=== PATIENT | female | born 1970 | race Caucasian/White ===

== ENCOUNTER 2019-02-26 10:00 | Outpatient (RCR) | payer OTHER, SELFPAY | END 2019-02-26 23:59 | disposition home or self-care (01) | LOC: NS 10:00 | PROVIDERS: Visit Provider Orthopaedic Surgery | DX: R73.03 Prediabetes (principal); Z71.3 Dietary counseling and surveillance | CPT/HCPCS: 97802 ==

== ENCOUNTER → 2019-07-03 15:49 | Outpatient (CLI) | payer OTHER, SELFPAY ==
[2019-07-03 15:16] VITALS: BMI 54.7
[2019-07-03 18:05] LABS: BNP,B-Type NATRIURETIC PEPTIDE 11.7 pg/mL (0-100)
[2019-07-03 18:19] LABS: Anion Gap 10 (5-15); BUN 15 mg/dL (7-18); BUN/Creat Ratio 15.6 RATIO (10-20); Calcium,Total 9.4 mg/dL (8.5-10.1); Chloride 102 mmol/L (98-107); Creatinine, Serum 0.96 mg/dL (0.55-1.02); EST Glomerular Filtration Rate 66 mL/min (>60); Est Glom Filt Rate - Afr Amer 80 mL/min (>60); Free T3 2.8 pg/mL (2.18-3.98); Glucose 82 mg/dL (74-106); Potassium 3.8 mmol/L (3.5-5.1); Sodium Level 141 mmol/L (136-145)
== END ==
LOC: LAB 15:53
PROVIDERS: Family Provider Physician Assistant; PCP Physician Assistant; Referring Provider Internal Medicine Cardiovascular Disease; Visit Provider Internal Medicine Cardiovascular Disease
DX: R06.00 Dyspnea, unspecified (principal)
CPT/HCPCS: 36415; 80048; 83880; 84481

== ENCOUNTER → 2019-08-13 10:06 | Outpatient (CLI) | payer OTHER, SELFPAY ==
[2019-07-03 15:16] VITALS: BMI 54.7
--- NOTE | 2019-08-13 10:11 | RAD_ITS ---
STUDY: X-RAY - LEFT HAND REASON FOR EXAM: Female, 49 years old. Inflammatory polyarthropathy. TECHNIQUE: 3 view(s) of the hand. COMPARISON: None. FINDINGS: Normal radiocarpal articulation. Normal distal radioulnar joint. Normal visualized carpal bones. Normal carpal articulations Normal carpometacarpal articulation of the thumb. Normal second through fifth carpometacarpal joints. Normal metacarpi. Normal metacarpophalangeal joint of the thumb. Normal interphalangeal joint of the thumb. Normal proximal and distal phalanges of the thumb. Normal metacarpophalangeal joints of the second through fifth fingers. Normal proximal and distal interphalangeal joints of the second through fifth fingers. Normal phalanges of the second through fifth fingers. Diffuse soft tissue swelling. RAD/Hand Min 3 Views IMPRESSION: Diffuse soft tissue swelling. Electronically Signed: Larry Payne, at 11:32 EST , Service support ,
--- NOTE | 2019-08-13 10:11 | RAD_ITS ---
STUDY: X-RAY - RIGHT HAND REASON FOR EXAM: Female, 49 years old. Inflammatory polyarthropathy. TECHNIQUE: 3 view(s) of the hand. COMPARISON: None. FINDINGS: Normal radiocarpal articulation. Normal distal radioulnar joint. Normal visualized carpal bones. Normal carpal articulations Normal carpometacarpal articulation of the thumb. Normal second through fifth carpometacarpal joints. Normal metacarpi. Normal metacarpophalangeal joint of the thumb. Normal interphalangeal joint of the thumb. Normal proximal and distal phalanges of the thumb. Normal metacarpophalangeal joints of the second through fifth fingers. Normal proximal and distal interphalangeal joints of the second through fifth fingers. Normal phalanges of the second through fifth fingers. Diffuse soft tissue swelling. RAD/Hand Min 3 Views IMPRESSION: Diffuse soft tissue swelling. Electronically Signed: Larry Payne, at 11:32 EST , Service support ,
[2019-08-13 12:26] LABS: Erythrocyte Sedimentation Rate 23 mm/hr (0-20)
[2019-08-13 12:27] LABS: Absolute Lymphocyte Count 1.31 X10^3/uL (0.83-4.51); Absolute Neutrophil Count 4.9 X10^3/uL (2.0-7.7); Basophil# 0.03 X10^3/uL; Basophil% 0.4 % (0-1); Eosinophil# 0.12 X10^3/uL; Eosinophils% 1.8 % (0-5); Hemoglobin 13.6 g/dL (12.0-15.0); Lymphocyte # 1.31 X10^3/ul (4.0); Lymphocyte % 19.5 % (19-41); Mean Corp Hgb Conc 31.6 g/dL (32-36); Mean Corpuscular Volume 94.9 fL (81-99); Mean Platelet Vol. 10.3 fl (6.2-12.0); Monocyte# 0.33 X10^3/uL; Monocyte% 4.9 % (0-10); NRBC Flagged by Analyzer 0 % (0-5); Neutrophil # 4.89 X10^3/uL (2.7-7.7); Platelet Count 310 K/mm3 (150-450); RBC Distribution Width CV 13.9 % (11.6-14.6); RBC Distribution Width SD 48.4 fl (35.1-43.9); Red Blood Count 4.53 M/mm3 (4.2-5.4); White Blood Count 6.7 K/mm3 (4.4-11.0)
[2019-08-13 13:07] LABS: ALB/GLOB Ratio 0.8 RATIO (0.9-2.4); AST(SGOT) 34 U/L (15-37); Alanine Aminotransfer ALT/SGPT 43 U/L (13-56); Albumin, Serum 3.6 g/dL (3.2-5.0); Alkaline Phosphatase 93 U/L (45-117); Anion Gap 8 (5-15); BUN 17 mg/dL (7-18); Calcium,Total 9.2 mg/dL (8.5-10.1); Chloride 103 mmol/L (98-107); Creatinine, Serum 0.94 mg/dL (0.55-1.02); EST Glomerular Filtration Rate 67 mL/min (>60); Est Glom Filt Rate - Afr Amer 82 mL/min (>60); Globulin 4.7 g/dL (2.2-4.2); Glucose 111 mg/dL (74-106); Potassium 3.9 mmol/L (3.5-5.1); Protein, Total 8.3 g/dL (6.4-8.2); Rheumatoid Factor < 10.0 IU/mL (<15); Sodium Level 139 mmol/L (136-145)
[2019-08-13 13:40] LABS: Hepatitis B Surface Antibody Non-Reactive; Hepatitis B Surface Antigen Non-Reactive (Nonreactive); Hepatitis C Antibody Non-Reactive (Nonreactive)
[2019-08-14 14:56] LABS: SJOGREN'S Anti-SS-A test 0.8 AI (0.0-0.9); SJOGREN'S Anti-SS-B test < 0.2 AI (0.0-0.9)
[2019-08-14 15:33] LABS: ANTINUCLEAR ANTIBODIES DIRECT Negative (Negative)
[2019-08-19 16:31] LABS: CCP IgG Antibodies 10 units (0-19); HLA B27 Negative (.); Hepatitis B Core AB IgM Negative (Negative)
== END ==
LOC: MTLAB 10:09
PROVIDERS: Family Provider Physician Assistant; PCP Physician Assistant; Referring Provider Internal Medicine Rheumatology; Visit Provider Internal Medicine Rheumatology
DX: M06.4 Inflammatory polyarthropathy (principal); M79.7 Fibromyalgia; M17.0 Bilateral primary osteoarthritis of knee; M21.40 Flat foot [pes planus] (acquired), unspecified foot; E03.9 Hypothyroidism, unspecified; E28.2 Polycystic ovarian syndrome; G47.33 Obstructive sleep apnea (adult) (pediatric); E66.9 Obesity, unspecified
CPT/HCPCS: 36415; 73130; 80053; 81374; 85025; 85652; 86038; 86140; 86200; 86235; 86431; 86705; 86706; 86803; 87340

== ENCOUNTER → 2019-11-15 | Outpatient (CLI) | payer OTHER, SELFPAY ==
[2019-07-03 15:16] VITALS: BMI 54.7
[2019-11-15 15:36] LABS: Absolute Neutrophil Count 4.1 X10^3/uL (2.0-7.7); Basophil# 0.02 X10^3/uL; Basophil% 0.3 % (0-1); Eosinophils% 1.7 % (0-5); Hematocrit 38.8 % (37-47); Hemoglobin 12.6 g/dL (12.0-15.0); Lymphocyte % 21.8 % (19-41); Mean Corp Hgb Conc 32.5 g/dL (32-36); Mean Corpuscular Hgb 30.9 pg (27.0-32.0); Mean Corpuscular Volume 95.1 fL (81-99); Mean Platelet Vol. 9.9 fl (6.2-12.0); Monocyte# 0.39 X10^3/uL; Monocyte% 6.5 % (0-10); NRBC Flagged by Analyzer 0 % (0-5); Neutrophil # 4.13 X10^3/uL (2.7-7.7); Neutrophil % 69.4 % (47-70); Platelet Count 268 K/mm3 (150-450); RBC Distribution Width CV 15.2 % (11.6-14.6); RBC Distribution Width SD 52.6 fl (35.1-43.9); Red Blood Count 4.08 M/mm3 (4.2-5.4)
[2019-11-15 15:47] LABS: ALB/GLOB Ratio 0.8 RATIO (0.9-2.4); AST(SGOT) 37 U/L (15-37); Alanine Aminotransfer ALT/SGPT 47 U/L (13-56); Albumin, Serum 3.5 g/dL (3.2-5.0); Alkaline Phosphatase 81 U/L (45-117); Anion Gap 4 (5-15); BUN 16 mg/dL (7-18); BUN/Creat Ratio 17.2 RATIO (10-20); Calcium,Total 9.2 mg/dL (8.5-10.1); Chloride 102 mmol/L (98-107); Creatinine, Serum 0.93 mg/dL (0.55-1.02); EST Glomerular Filtration Rate 69 mL/min (>60); Est Glom Filt Rate - Afr Amer 83 mL/min (>60); Globulin 4.4 g/dL (2.2-4.2); Glucose 103 mg/dL (74-106); Potassium 3.9 mmol/L (3.5-5.1); Protein, Total 7.9 g/dL (6.4-8.2); Sodium Level 138 mmol/L (136-145)
== END | disposition home or self-care (01) ==
LOC: MTLAB 13:31
PROVIDERS: PCP Physician Assistant; Referring Provider Internal Medicine Rheumatology; Visit Provider Internal Medicine Rheumatology
DX: M06.4 Inflammatory polyarthropathy (principal); M79.7 Fibromyalgia; M17.0 Bilateral primary osteoarthritis of knee; M21.40 Flat foot [pes planus] (acquired), unspecified foot; E03.9 Hypothyroidism, unspecified; E28.2 Polycystic ovarian syndrome; G47.33 Obstructive sleep apnea (adult) (pediatric); E66.9 Obesity, unspecified; Z79.899 Other long term (current) drug therapy
CPT/HCPCS: 36415; 80053; 85025

== ENCOUNTER → 2020-02-03 | Outpatient (CLI) | payer OTHER, SELFPAY ==
[2020-01-20 15:53] VITALS: BMI 54.7
[2020-02-03 15:19] LABS: Absolute Lymphocyte Count 0.76 X10^3/uL (0.83-4.51); Absolute Neutrophil Count 5.9 X10^3/uL (2.0-7.7); Basophil# 0.03 X10^3/uL; Basophil% 0.4 % (0-1); Eosinophil# 0.07 X10^3/uL; Hematocrit 40.5 % (37-47); Hemoglobin 13.3 g/dL (12.0-15.0); Lymphocyte # 0.76 X10^3/ul (4.0); Lymphocyte % 10.7 % (19-41); Mean Corp Hgb Conc 32.8 g/dL (32-36); Mean Corpuscular Hgb 33.4 pg (27.0-32.0); Mean Corpuscular Volume 101.8 fL (81-99); Monocyte% 4.2 % (0-10); NRBC Flagged by Analyzer 0 % (0-5); Neutrophil # 5.94 X10^3/uL (2.7-7.7); Neutrophil % 83.3 % (47-70); Platelet Count 271 K/mm3 (150-450); RBC Distribution Width CV 15.2 % (11.6-14.6); Red Blood Count 3.98 M/mm3 (4.2-5.4); White Blood Count 7.1 K/mm3 (4.4-11.0)
[2020-02-03 15:36] LABS: ALB/GLOB Ratio 0.8 RATIO (0.9-2.4); AST(SGOT) 36 U/L (15-37); Alanine Aminotransfer ALT/SGPT 60 U/L (13-56); Albumin, Serum 3.6 g/dL (3.2-5.0); Alkaline Phosphatase 78 U/L (45-117); Anion Gap 7 (5-15); BUN 18 mg/dL (7-18); BUN/Creat Ratio 17.5 RATIO (10-20); Calcium,Total 9.3 mg/dL (8.5-10.1); Chloride 98 mmol/L (98-107); Creatinine, Serum 1.03 mg/dL (0.55-1.02); EST Glomerular Filtration Rate 61 mL/min (>60); Est Glom Filt Rate - Afr Amer 74 mL/min (>60); Globulin 4.3 g/dL (2.2-4.2); Glucose 196 mg/dL (74-106); Potassium 3.9 mmol/L (3.5-5.1); Protein, Total 7.9 g/dL (6.4-8.2); Sodium Level 133 mmol/L (136-145)
== END | disposition home or self-care (01) ==
LOC: MTLAB 13:54
PROVIDERS: PCP Physician Assistant; Referring Provider Internal Medicine Rheumatology; Visit Provider Internal Medicine Rheumatology
DX: M06.4 Inflammatory polyarthropathy (principal); M79.7 Fibromyalgia; M17.0 Bilateral primary osteoarthritis of knee; M21.40 Flat foot [pes planus] (acquired), unspecified foot; E03.9 Hypothyroidism, unspecified; E28.2 Polycystic ovarian syndrome; G47.33 Obstructive sleep apnea (adult) (pediatric); E66.9 Obesity, unspecified; Z79.899 Other long term (current) drug therapy
CPT/HCPCS: 36415; 80053; 85025

== ENCOUNTER → 2020-07-07 | Outpatient (CLI) | payer OTHER, SELFPAY ==
[2020-01-20 15:53] VITALS: BMI 54.7
[2020-07-07 15:33] LABS: Absolute Lymphocyte Count 1.61 X10^3/uL (0.83-4.51); Basophil# 0.02 X10^3/uL; Basophil% 0.3 % (0-1); Eosinophils% 1.6 % (0-5); Hematocrit 41.6 % (37-47); Lymphocyte # 1.61 X10^3/ul (4.0); Lymphocyte % 26.2 % (19-41); Mean Corp Hgb Conc 31.3 g/dL (32-36); Mean Corpuscular Hgb 30.1 pg (27.0-32.0); Mean Corpuscular Volume 96.3 fL (81-99); Monocyte% 6.5 % (0-10); NRBC Flagged by Analyzer 0 % (0-5); Neutrophil # 3.99 X10^3/uL (2.7-7.7); Neutrophil % 64.9 % (47-70); Platelet Count 303 K/mm3 (150-450); RBC Distribution Width CV 13.8 % (11.6-14.6); RBC Distribution Width SD 49.1 fl (35.1-43.9); Red Blood Count 4.32 M/mm3 (4.2-5.4); White Blood Count 6.2 K/mm3 (4.4-11.0)
[2020-07-07 15:58] LABS: ALB/GLOB Ratio 0.8 RATIO (0.9-2.4); AST(SGOT) 35 U/L (15-37); Alanine Aminotransfer ALT/SGPT 46 U/L (13-56); Albumin, Serum 3.5 g/dL (3.2-5.0); Alkaline Phosphatase 82 U/L (45-117); Anion Gap 6 (5-15); BUN 14 mg/dL (7-18); BUN/Creat Ratio 17.6 RATIO (10-20); Chloride 104 mmol/L (98-107); Creatinine, Serum 0.79 mg/dL (0.55-1.02); EST Glomerular Filtration Rate 82 mL/min (>60); Est Glom Filt Rate - Afr Amer 99 mL/min (>60); Globulin 4.3 g/dL (2.2-4.2); Glucose 86 mg/dL (74-106); Potassium 3.5 mmol/L (3.5-5.1); Protein, Total 7.8 g/dL (6.4-8.2); Sodium Level 140 mmol/L (136-145)
== END | disposition home or self-care (01) ==
LOC: MTLAB 14:06
PROVIDERS: PCP Physician Assistant; Referring Provider Internal Medicine Rheumatology; Visit Provider Internal Medicine Rheumatology
DX: M06.09 Rheumatoid arthritis without rheumatoid factor, multiple sites (principal); M79.7 Fibromyalgia; M17.0 Bilateral primary osteoarthritis of knee; K76.0 Fatty (change of) liver, not elsewhere classified; M21.40 Flat foot [pes planus] (acquired), unspecified foot; E03.9 Hypothyroidism, unspecified; E28.2 Polycystic ovarian syndrome; G47.33 Obstructive sleep apnea (adult) (pediatric); E66.9 Obesity, unspecified; Z79.899 Other long term (current) drug therapy
CPT/HCPCS: 36415; 80053; 85025

== ENCOUNTER → 2020-07-14 | Outpatient (CLI) | payer OTHER, SELFPAY ==
[2020-01-20 15:53] VITALS: BMI 54.7
[2020-07-17 16:08] LABS: Red Blood Cell Count Test/G6PD 4.11 x10E6/uL (3.77-5.28)
[2020-07-17 17:50] LABS: G6PD Quant Test 316 (127-427)
== END | disposition home or self-care (01) ==
LOC: MTLAB 16:29
PROVIDERS: PCP Physician Assistant; Referring Provider Internal Medicine Rheumatology; Visit Provider Internal Medicine Rheumatology
DX: M06.09 Rheumatoid arthritis without rheumatoid factor, multiple sites (principal); M79.7 Fibromyalgia; M17.0 Bilateral primary osteoarthritis of knee; K76.0 Fatty (change of) liver, not elsewhere classified; M21.40 Flat foot [pes planus] (acquired), unspecified foot; E03.9 Hypothyroidism, unspecified; E28.2 Polycystic ovarian syndrome; G47.33 Obstructive sleep apnea (adult) (pediatric); E66.9 Obesity, unspecified; Z79.899 Other long term (current) drug therapy
CPT/HCPCS: 36415; 82955

== ENCOUNTER → 2020-09-28 15:49 | Outpatient (CLI) | payer OTHER, SELFPAY ==
[2020-01-20 15:53] VITALS: BMI 54.7
[2020-09-28 17:48] LABS: Absolute Lymphocyte Count 1.14 X10^3/uL (0.83-4.51); Absolute Neutrophil Count 4.2 X10^3/uL (2.0-7.7); Basophil# 0.03 X10^3/uL; Basophil% 0.5 % (0-1); Eosinophil# 0.07 X10^3/uL; Eosinophils% 1.2 % (0-5); Hematocrit 44.5 % (37-47); Lymphocyte # 1.14 X10^3/ul (4.0); Lymphocyte % 19.3 % (19-41); Mean Corp Hgb Conc 31.5 g/dL (32-36); Mean Corpuscular Volume 95.5 fL (81-99); Mean Platelet Vol. 10.4 fl (6.2-12.0); Monocyte# 0.48 X10^3/uL; Monocyte% 8.1 % (0-10); NRBC Flagged by Analyzer 0 % (0-5); Neutrophil # 4.16 X10^3/uL (2.7-7.7); Neutrophil % 70.2 % (47-70); Platelet Count 303 K/mm3 (150-450); RBC Distribution Width CV 13.5 % (11.6-14.6); RBC Distribution Width SD 47.6 fl (35.1-43.9); Red Blood Count 4.66 M/mm3 (4.2-5.4); White Blood Count 5.9 K/mm3 (4.4-11.0)
[2020-09-28 18:12] LABS: ALB/GLOB Ratio 0.8 RATIO (0.9-2.4); AST(SGOT) 32 U/L (15-37); Alanine Aminotransfer ALT/SGPT 55 U/L (13-56); Albumin, Serum 3.5 g/dL (3.2-5.0); Alkaline Phosphatase 93 U/L (45-117); Anion Gap 6 (5-15); BUN 14 mg/dL (7-18); BUN/Creat Ratio 13.7 RATIO (10-20); Calcium,Total 8.8 mg/dL (8.5-10.1); Chloride 104 mmol/L (98-107); Creatinine, Serum 1.02 mg/dL (0.55-1.02); EST Glomerular Filtration Rate 61 mL/min (>60); Est Glom Filt Rate - Afr Amer 74 mL/min (>60); Globulin 4.2 g/dL (2.2-4.2); Glucose 154 mg/dL (74-106); Potassium 4.2 mmol/L (3.5-5.1); Protein, Total 7.7 g/dL (6.4-8.2); Sodium Level 138 mmol/L (136-145)
== END ==
LOC: MTLAB 15:51
PROVIDERS: PCP Physician Assistant; Referring Provider Internal Medicine Rheumatology; Visit Provider Internal Medicine Rheumatology
DX: M06.09 Rheumatoid arthritis without rheumatoid factor, multiple sites (principal); M79.7 Fibromyalgia; M17.0 Bilateral primary osteoarthritis of knee; K76.0 Fatty (change of) liver, not elsewhere classified; M21.40 Flat foot [pes planus] (acquired), unspecified foot; E03.9 Hypothyroidism, unspecified; E28.2 Polycystic ovarian syndrome; G47.33 Obstructive sleep apnea (adult) (pediatric); E66.9 Obesity, unspecified; Z79.899 Other long term (current) drug therapy
CPT/HCPCS: 36415; 80053; 85025

== ENCOUNTER → 2020-12-21 16:23 | Outpatient (CLI) | payer OTHER, SELFPAY ==
[2020-01-20 15:53] VITALS: BMI 54.7
[2020-12-21 17:34] LABS: Absolute Lymphocyte Count 1.15 X10^3/uL (0.83-4.51); Absolute Neutrophil Count 4.2 X10^3/uL (2.0-7.7); Basophil# 0.02 X10^3/uL; Basophil% 0.3 % (0-1); Eosinophil# 0.09 X10^3/uL; Eosinophils% 1.5 % (0-5); Hematocrit 40.4 % (37-47); Lymphocyte # 1.15 X10^3/ul (4.0); Lymphocyte % 19.2 % (19-41); Mean Corp Hgb Conc 32.2 g/dL (32-36); Mean Corpuscular Hgb 31.4 pg (27.0-32.0); Mean Corpuscular Volume 97.6 fL (81-99); Monocyte# 0.49 X10^3/uL; Monocyte% 8.2 % (0-10); NRBC Flagged by Analyzer 0 % (0-5); Neutrophil # 4.19 X10^3/uL (2.7-7.7); Neutrophil % 70.1 % (47-70); Platelet Count 248 K/mm3 (150-450); RBC Distribution Width CV 13.7 % (11.6-14.6); Red Blood Count 4.14 M/mm3 (4.2-5.4)
[2020-12-21 18:00] LABS: ALB/GLOB Ratio 0.8 RATIO (0.9-2.4); AST(SGOT) 52 U/L (15-37); Alanine Aminotransfer ALT/SGPT 57 U/L (13-56); Albumin, Serum 3.3 g/dL (3.2-5.0); Alkaline Phosphatase 80 U/L (45-117); Anion Gap 6 (5-15); BUN 16 mg/dL (7-18); BUN/Creat Ratio 15.7 RATIO (10-20); Calcium,Total 8.8 mg/dL (8.5-10.1); Chloride 105 mmol/L (98-107); Creatinine, Serum 1.02 mg/dL (0.55-1.02); EST Glomerular Filtration Rate 61 mL/min (>60); Est Glom Filt Rate - Afr Amer 74 mL/min (>60); Globulin 3.9 g/dL (2.2-4.2); Glucose 138 mg/dL (74-106); Potassium 4.1 mmol/L (3.5-5.1); Protein, Total 7.2 g/dL (6.4-8.2); Sodium Level 141 mmol/L (136-145)
== END ==
LOC: MTLAB 16:25
PROVIDERS: PCP Physician Assistant; Referring Provider Internal Medicine Rheumatology; Visit Provider Internal Medicine Rheumatology
DX: M06.09 Rheumatoid arthritis without rheumatoid factor, multiple sites (principal); M79.7 Fibromyalgia; M17.0 Bilateral primary osteoarthritis of knee; K76.0 Fatty (change of) liver, not elsewhere classified; M21.40 Flat foot [pes planus] (acquired), unspecified foot; E03.9 Hypothyroidism, unspecified; E28.2 Polycystic ovarian syndrome; G47.33 Obstructive sleep apnea (adult) (pediatric); E66.9 Obesity, unspecified; Z79.899 Other long term (current) drug therapy
CPT/HCPCS: 36415; 80053; 85025

== ENCOUNTER → 2021-01-18 15:59 | Outpatient (CLI) | payer OTHER, SELFPAY ==
[2020-01-20 15:53] VITALS: BMI 54.7
[2021-01-18 17:58] LABS: ALB/GLOB Ratio 0.9 RATIO (0.9-2.4); AST(SGOT) 34 U/L (15-37); Alanine Aminotransfer ALT/SGPT 53 U/L (13-56); Albumin, Serum 3.4 g/dL (3.2-5.0); Alkaline Phosphatase 88 U/L (45-117); Anion Gap 3 (5-15); BUN 12 mg/dL (7-18); BUN/Creat Ratio 15.1 RATIO (10-20); Chloride 103 mmol/L (98-107); EST Glomerular Filtration Rate 81 mL/min (>60); Est Glom Filt Rate - Afr Amer 99 mL/min (>60); Globulin 3.8 g/dL (2.2-4.2); Glucose 165 mg/dL (74-106); Potassium 3.6 mmol/L (3.5-5.1); Protein, Total 7.2 g/dL (6.4-8.2); Sodium Level 139 mmol/L (136-145)
== END ==
PROVIDERS: PCP Physician Assistant; Referring Provider Internal Medicine Rheumatology; Visit Provider Internal Medicine Rheumatology
DX: M06.09 Rheumatoid arthritis without rheumatoid factor, multiple sites (principal); M79.7 Fibromyalgia; M17.0 Bilateral primary osteoarthritis of knee; K76.0 Fatty (change of) liver, not elsewhere classified; M21.40 Flat foot [pes planus] (acquired), unspecified foot; E03.9 Hypothyroidism, unspecified; E28.2 Polycystic ovarian syndrome; G47.33 Obstructive sleep apnea (adult) (pediatric); E66.9 Obesity, unspecified; Z79.899 Other long term (current) drug therapy
CPT/HCPCS: 36415; 80053

== ENCOUNTER → 2021-02-22 16:15 | Outpatient (CLI) | payer OTHER, SELFPAY ==
[2020-01-20 15:53] VITALS: BMI 54.7
--- NOTE | 2021-02-22 16:23 | RAD_ITS ---
STUDY: X-RAY - CERVICAL SPINE REASON FOR EXAM: Female, 51 years old. chronic neck pain, pt states she has fibromyalgia and arthritis. TECHNIQUE: 3 view(s) of the cervical spine were obtained. COMPARISON: None FINDINGS: Normal anterior atlantoaxial articulation. Normal odontoid process. There is straightening of the normal cervical lordosis. There is multi-level endplate spondylosis. There is multi-level degenerative disc disease with multilevel disc space narrowing. Normal visualized intervertebral neuroforamina. The soft tissue structures are unremarkable. RAD/Cerv Spine 2 or 3 Views IMPRESSION: Degenerative disc disease lower cervical spine with straightening of the normal lordotic curvature. Electronically Signed: Benjie Yadav MD at 9:15 EDT Tel , Service support ,
--- NOTE | 2021-02-22 16:31 | RAD_ITS ---
STUDY: X-RAY - LUMBAR SPINE REASON FOR EXAM: Female, 51 years old. chronic back pain, pt states she has fibromyalgia and arthritis. TECHNIQUE: 3 view(s) of the lumbar spine were obtained. COMPARISON: None FINDINGS: Normal lumbar lordosis. Mild levoscoliosis centered at L4. There is a normal alignment of the vertebrae. There is multilevel endplate spondylosis of the lumbar vertebrae. Normal disc space heights. The soft tissue structures are unremarkable. RAD/Lumbar Spine 2 or 3 Views IMPRESSION: Mild levoscoliosis of the lower lumbar spine with degenerative disc disease. Electronically Signed: Benjie Yadav MD at 9:14 EDT Tel , Service support ,
== END ==
LOC: RAD 16:18
PROVIDERS: PCP Physician Assistant; Referring Provider Anesthesiology Pain Medicine; Visit Provider Anesthesiology Pain Medicine
DX: M54.2 Cervicalgia (principal); M54.5 Low back pain
CPT/HCPCS: 72040; 72100

== ENCOUNTER → 2021-03-02 15:01 | Outpatient (CLI) | payer OTHER, SELFPAY ==
[2020-01-20 15:53] VITALS: BMI 54.7
[2021-03-02 18:03] LABS: Absolute Lymphocyte Count 0.99 X10^3/uL (0.83-4.51); Absolute Neutrophil Count 2.7 X10^3/uL (2.0-7.7); Basophil# 0.03 X10^3/uL; Basophil% 0.7 % (0-1); Eosinophil# 0.07 X10^3/uL; Eosinophils% 1.7 % (0-5); Hematocrit 40.9 % (37-47); Lymphocyte # 0.99 X10^3/ul (0.83-4.51); Lymphocyte % 23.6 % (19-41); Mean Corp Hgb Conc 31.8 g/dL (32-36); Mean Corpuscular Volume 97.6 fL (81-99); Mean Platelet Vol. 10.4 fl (6.2-12.0); Monocyte# 0.37 X10^3/uL; Monocyte% 8.8 % (0-10); NRBC Flagged by Analyzer 0 % (0-5); Neutrophil # 2.72 X10^3/uL (2.7-7.7); Neutrophil % 64.7 % (47-70); Platelet Count 257 K/mm3 (150-450); RBC Distribution Width CV 13.8 % (11.6-14.6); RBC Distribution Width SD 49.3 fl (35.1-43.9); Red Blood Count 4.19 M/mm3 (4.2-5.4); White Blood Count 4.2 K/mm3 (4.4-11.0)
[2021-03-02 18:24] LABS: ALB/GLOB Ratio 0.8 RATIO (0.9-2.4); AST(SGOT) 37 U/L (15-37); Alanine Aminotransfer ALT/SGPT 55 U/L (13-56); Albumin, Serum 3.4 g/dL (3.2-5.0); Alkaline Phosphatase 102 U/L (45-117); Anion Gap 6 (5-15); BUN 14 mg/dL (7-18); Calcium,Total 9.1 mg/dL (8.5-10.1); Chloride 104 mmol/L (98-107); Creatinine, Serum 0.87 mg/dL (0.55-1.02); EST Glomerular Filtration Rate 73 mL/min (>60); Est Glom Filt Rate - Afr Amer 89 mL/min (>60); Glucose 147 mg/dL (74-106); Potassium 3.7 mmol/L (3.5-5.1); Protein, Total 7.4 g/dL (6.4-8.2); Sodium Level 140 mmol/L (136-145)
== END ==
LOC: MTLAB 15:02
PROVIDERS: PCP Physician Assistant; Referring Provider Internal Medicine Rheumatology; Visit Provider Internal Medicine Rheumatology
DX: M06.09 Rheumatoid arthritis without rheumatoid factor, multiple sites (principal); M79.7 Fibromyalgia; M17.0 Bilateral primary osteoarthritis of knee; K76.0 Fatty (change of) liver, not elsewhere classified; M21.40 Flat foot [pes planus] (acquired), unspecified foot; E03.9 Hypothyroidism, unspecified; E28.2 Polycystic ovarian syndrome; G47.33 Obstructive sleep apnea (adult) (pediatric); E66.9 Obesity, unspecified; Z79.899 Other long term (current) drug therapy
CPT/HCPCS: 36415; 80053; 85025

== ENCOUNTER → 2021-06-02 16:41 | Outpatient (CLI) | payer OTHER, SELFPAY ==
[2021-06-02 18:02] LABS: Absolute Lymphocyte Count 1.32 X10^3/uL (0.83-4.51); Absolute Neutrophil Count 3.1 X10^3/uL (2.0-7.7); Basophil# 0.02 X10^3/uL; Basophil% 0.4 % (0-1); Eosinophil# 0.08 X10^3/uL; Eosinophils% 1.6 % (0-5); Hematocrit 39.6 % (37-47); Hemoglobin 12.9 g/dL (12.0-15.0); Lymphocyte # 1.32 X10^3/ul (0.83-4.51); Lymphocyte % 26.6 % (19-41); Mean Corp Hgb Conc 32.6 g/dL (32-36); Mean Corpuscular Hgb 31.3 pg (27.0-32.0); Mean Corpuscular Volume 96.1 fL (81-99); Monocyte# 0.43 X10^3/uL; Monocyte% 8.7 % (0-10); NRBC Flagged by Analyzer 0 % (0-5); Neutrophil # 3.11 X10^3/uL (2.7-7.7); Neutrophil % 62.5 % (47-70); Platelet Count 280 K/mm3 (150-450); RBC Distribution Width CV 13.4 % (11.6-14.6); RBC Distribution Width SD 47.9 fl (35.1-43.9); Red Blood Count 4.12 M/mm3 (4.2-5.4)
[2021-06-02 18:33] LABS: ALB/GLOB Ratio 0.9 RATIO (0.9-2.4); AST(SGOT) 37 U/L (15-37); Alanine Aminotransfer ALT/SGPT 54 U/L (13-56); Albumin, Serum 3.5 g/dL (3.2-5.0); Alkaline Phosphatase 105 U/L (45-117); Anion Gap 5 (5-15); BUN 12 mg/dL (7-18); BUN/Creat Ratio 13.6 RATIO (10-20); Calcium,Total 8.7 mg/dL (8.5-10.1); Chloride 106 mmol/L (98-107); Creatinine, Serum 0.88 mg/dL (0.55-1.02); EST Glomerular Filtration Rate 73 mL/min (>60); Est Glom Filt Rate - Afr Amer 88 mL/min (>60); Globulin 3.8 g/dL (2.2-4.2); Glucose 149 mg/dL (74-106); Potassium 3.7 mmol/L (3.5-5.1); Protein, Total 7.3 g/dL (6.4-8.2); Sodium Level 141 mmol/L (136-145)
== END ==
LOC: MTLAB 16:42
PROVIDERS: PCP Physician Assistant; Referring Provider Internal Medicine Rheumatology; Visit Provider Internal Medicine Rheumatology
DX: M06.09 Rheumatoid arthritis without rheumatoid factor, multiple sites (principal); M79.7 Fibromyalgia; M17.0 Bilateral primary osteoarthritis of knee; K76.0 Fatty (change of) liver, not elsewhere classified; M21.40 Flat foot [pes planus] (acquired), unspecified foot; E03.9 Hypothyroidism, unspecified; E28.2 Polycystic ovarian syndrome; G47.33 Obstructive sleep apnea (adult) (pediatric); E66.9 Obesity, unspecified; Z79.899 Other long term (current) drug therapy
CPT/HCPCS: 36415; 80053; 85025

== ENCOUNTER → 2021-08-03 10:36 | Outpatient (CLI) | payer OTHER, MEDICAID, SELFPAY ==
[2020-01-20 15:53] VITALS: BMI 54.7
[2021-08-03 12:36] LABS: Absolute Lymphocyte Count 1.11 X10^3/uL (0.83-4.51); Absolute Neutrophil Count 3.9 X10^3/uL (2.0-7.7); Basophil# 0.02 X10^3/uL; Basophil% 0.4 % (0-1); Eosinophil# 0.14 X10^3/uL; Eosinophils% 2.5 % (0-5); Hematocrit 41.1 % (37-47); Hemoglobin 13.4 g/dL (12.0-15.0); Lymphocyte # 1.11 X10^3/ul (0.83-4.51); Lymphocyte % 20.1 % (19-41); Mean Corp Hgb Conc 32.6 g/dL (32-36); Mean Corpuscular Hgb 30.9 pg (27.0-32.0); Mean Corpuscular Volume 94.9 fL (81-99); Monocyte# 0.36 X10^3/uL; Monocyte% 6.5 % (0-10); NRBC Flagged by Analyzer 0 % (0-5); Neutrophil # 3.86 X10^3/uL (2.7-7.7); Platelet Count 240 K/mm3 (150-450); RBC Distribution Width CV 13.5 % (11.6-14.6); RBC Distribution Width SD 47.1 fl (35.1-43.9); Red Blood Count 4.33 M/mm3 (4.2-5.4); White Blood Count 5.5 K/mm3 (4.4-11.0)
[2021-08-03 12:48] LABS: ALB/GLOB Ratio 0.8 RATIO (0.9-2.4); AST(SGOT) 38 U/L (15-37); Alanine Aminotransfer ALT/SGPT 54 U/L (13-56); Albumin, Serum 3.3 g/dL (3.2-5.0); Alkaline Phosphatase 89 U/L (45-117); Anion Gap 3 (5-15); BUN 17 mg/dL (7-18); BUN/Creat Ratio 18.3 RATIO (10-20); Calcium,Total 9.1 mg/dL (8.5-10.1); Chloride 103 mmol/L (98-107); Creatinine, Serum 0.93 mg/dL (0.55-1.02); EST Glomerular Filtration Rate 68 mL/min (>60); Est Glom Filt Rate - Afr Amer 82 mL/min (>60); Globulin 4.4 g/dL (2.2-4.2); Glucose 131 mg/dL (74-106); Potassium 3.7 mmol/L (3.5-5.1); Protein, Total 7.7 g/dL (6.4-8.2); Sodium Level 136 mmol/L (136-145)
== END ==
PROVIDERS: PCP Physician Assistant; Referring Provider Internal Medicine Rheumatology; Visit Provider Internal Medicine Rheumatology
DX: M06.09 Rheumatoid arthritis without rheumatoid factor, multiple sites (principal); M79.7 Fibromyalgia; M17.0 Bilateral primary osteoarthritis of knee; K76.0 Fatty (change of) liver, not elsewhere classified; M21.40 Flat foot [pes planus] (acquired), unspecified foot; E03.9 Hypothyroidism, unspecified; E28.2 Polycystic ovarian syndrome; G47.33 Obstructive sleep apnea (adult) (pediatric); E66.9 Obesity, unspecified; Z79.899 Other long term (current) drug therapy
CPT/HCPCS: 36415; 80053; 85025

== ENCOUNTER 2022-01-19 15:00 | Outpatient (CLI) | payer MEDICAID, SELFPAY ==
[2022-01-19 17:17] LABS: Cholesterol 224 mg/dL (200); Follicle Stimulating Hormone 6.4 mIU/mL; High Density Lipoprotein 67 mg/dL; Luteinizing Hormone 5.7 mIU/mL; Triglycerides 226 mg/dL; Very Low Density Lipoprotein 45 mg/dL (5-40)
[2022-01-24 13:08] LABS: DHEA Sulfate 72.9 ug/dL (41.2-243.7); Testosterone, % Free 1.68 % (0.50-2.80); Testosterone, Free 0.39 ng/dL (0.10-0.85); Testosterone, Total 23 ng/dL (4-50)
[2022-01-24 14:18] LABS: Estrogen, Total, Serum 166 pg/mL (.)
== END 2022-01-19 23:59 | disposition home or self-care (01) ==
LOC: BIMLAB 15:01
PROVIDERS: PCP Physician Assistant; Visit Provider Nurse Practitioner Family
DX: L68.0 Hirsutism (principal); E66.9 Obesity, unspecified; E78.5 Hyperlipidemia, unspecified; E28.2 Polycystic ovarian syndrome
CPT/HCPCS: 36415; 80061; 82533; 82627; 82672; 83001; 83002; 84402; 84403; 82626

== ENCOUNTER → 2022-04-25 | Outpatient (CLI) | payer MEDICAID, SELFPAY ==
--- NOTE | 2022-04-25 10:07 | STRESSREP ---
Stress Test Report Pharmacologic myocardial perfusion stress test. 52-year-old lady with a history of dyspnea on exertion. Stress protocol: Resting EKG demonstrates normal sinus rhythm with a rate of 86 bpm normal intervals are noted resting blood pressure is 124/74 mmHg. 0.4 mg of regadenoson was infused per usual protocol followed by Intravenous saline flush injection continuous EKG monitoring was performed. The maximum heart rate attained was 110 bpm which was 64% of max impacted heart rate the maximum workload was 1 metabolic equivalent. At rest there were no ST or T wave changes noted suggest abnormal flow reserve and at peak infusion nonspecific ST changes were noted to suggest abnormal flow reserve. The peak blood pressure is 124/74 mmHg. Myocardial perfusion protocol. 14.6 mCi of technetium 99m sestamibi was injected at rest. 0.4 mg of regadenoson was infused per usual protocol. At peak infusion 44.7 mCi of technetium 99m sestamibi was injected. Stress and rest images were reconstructed in comparing the short axis vertical long and horizontal long axis. Gated images were also obtained to Perfusion SPECT analysis: Review of the stress images demonstrate reduction of perfusion noted in the anterior wall on the stress images. The septum and inferior wall and lateral wall appear to be well perfused. The resting images demonstrate mild improvement in the anterior wall suggesting a mild amount of anterior wall ischemia. Gated SPECT analysis: The gated ejection fraction is 51%. Conclusion: Abnormal pharmacologic myocardial perfusion stress test with evidence of anterior ischemia. Preserved ejection fraction.
== END | disposition home or self-care (01) ==
LOC: CVS 07:18
PROVIDERS: PCP Physician Assistant; Referring Provider Physician Assistant Medical; Visit Provider Physician Assistant Medical
DX: R06.00 Dyspnea, unspecified (principal); R53.83 Other fatigue; R00.0 Tachycardia, unspecified
CPT/HCPCS: 78452; 93017; A9500; A4216; J2785

== ENCOUNTER 2022-05-02 08:54 | Day surgery (SDC) | payer MEDICAID, SELFPAY ==
--- NOTE | 2022-04-28 13:10 | RAD_ITS ---
STUDY: X-RAY CHEST REASON FOR EXAM: Female, 52 years old. PRE CLSP TECHNIQUE: PA and lateral views of the chest. COMPARISON: None. FINDINGS: The lungs are clear and expanded. There is no demonstrated pleural abnormality. Normal size heart. Normal mediastinum and elliott. Normal visualized pulmonary arteries. Normal visualized aortic arch and descending thoracic aorta. There are diffuse degenerative changes of the visualized thoracic spine. Normal visualized ribs, clavicles, and shoulders. There is no demonstrated abnormality of the visualized soft tissue structures of the upper abdomen. RAD/Chest PA and Lateral IMPRESSION: Normal x-ray examination of the chest. Electronically Signed: Cyn Richards MD at 6:21 EDT Reading Location ID and State: [facility] / [place] Tel , Service support ,
[2022-04-28 13:34] LABS: Absolute Lymphocyte Count 1.29 X10^3/uL (0.83-4.51); Absolute Neutrophil Count 5.2 X10^3/uL (2.0-7.7); Basophil# 0.03 X10^3/uL; Basophil% 0.4 % (0-1); Eosinophil# 0.14 X10^3/uL; Hematocrit 41.2 % (37-47); Hemoglobin 13.5 g/dL (12.0-15.0); Lymphocyte # 1.29 X10^3/ul (0.83-4.51); Lymphocyte % 18.1 % (19-41); Mean Corp Hgb Conc 32.8 g/dL (32-36); Mean Corpuscular Hgb 31.3 pg (27.0-32.0); Mean Corpuscular Volume 95.4 fL (81-99); Mean Platelet Vol. 10.1 fl (6.2-12.0); Monocyte# 0.49 X10^3/uL; Monocyte% 6.9 % (0-10); NRBC Flagged by Analyzer 0 % (0-5); Neutrophil # 5.17 X10^3/uL (2.7-7.7); Neutrophil % 72.3 % (47-70); Platelet Count 236 K/mm3 (150-450); RBC Distribution Width CV 13.6 % (11.6-14.6); RBC Distribution Width SD 48.5 fl (35.1-43.9); Red Blood Count 4.32 M/mm3 (4.2-5.4); White Blood Count 7.1 K/mm3 (4.4-11.0)
[2022-04-28 13:49] LABS: International Normalized Ratio 1.1; Prothrombin Time (Protime)PT. 13.6 SECONDS (11.7-14.9)
[2022-04-28 13:50] LABS: Partial Thromboplast Time 31.1 Seconds (24.1-36.2)
[2022-04-28 13:54] LABS: Anion Gap 7 (5-15); BUN 13 mg/dL (7-18); BUN/Creat Ratio 12.1 RATIO (10-20); Calcium,Total 9.4 mg/dL (8.5-10.1); Chloride 100 mmol/L (98-107); Creatinine, Serum 1.07 mg/dL (0.55-1.02); EST Glomerular Filtration Rate 58 mL/min (>60); Est Glom Filt Rate - Afr Amer 70 mL/min (>60); Glucose 128 mg/dL (74-106); Potassium 3.9 mmol/L (3.5-5.1); Sodium Level 136 mmol/L (136-145)
[2022-04-29 08:50] VITALS: BMI 54.4
[2022-05-02 09:12] LABS: Internal QC Validated? YES +Cl - CLEAR BKGD; Pregnancy, Urine Negative Negative
--- NOTE | 2022-05-02 09:13 | HP.PCM_ITS ---
History and Physical Date of Admission: 05/02/22 History of Present Illness Details: Larisa Gil is a 52 year old female that presents here today for a heart catheterization. After her office appointment in 2019, she had an echocardiogram performed in 2019 which demonstrated ejection fraction of 55 to 59%, normal pulmonary pressures and no valvular abnormalities. She also had a 24-hour Holter monitor performed which demonstrated an average heart rate of 80 bpm Recently, she had outside hospital Holter monitor that showed sinus rhythm with periods of sinus arrhythmia and average heart 87 bpm. Her shortness of breath did not correlate with sinus tachycardia. Patient underwent stress test on 04/25/2022 that was considered to be abnormal with evidence of anterior ischemia and showed a preserved ejection fraction. Pts main concern is fatigue and being SOB and exhausted. She finds that this has progressed. She sleeps 6-8 hours at night plus naps. She does have SARA and does use her CPAP. She does have palpitatitions. Intake Vital Signs: See EMR Intake Visit Reasons: [facility] Pepper Picker Required: No Accompanied by: no one Is patient in pain?: No Allergies No Known Allergies Allergy (Verified 03/22/22 14:56) Medications See EMR COUNTS INCLUDE 234 BEDS AT THE [facility] Medical History Arthritis Asthma Back problem CTS (carpal tunnel syndrome) Gall stones Gastrointestinal problem Gout H/O emotional problems Headache High blood pressure High blood triglycerides High cholesterol Hormone deficiency Hyperandrogenism Hyperlipidemia Hypoglycemia Hypothyroidism Morbid obesity Obstructive sleep apnea Osteoarthritis PCOS (polycystic ovarian syndrome) Polyarthralgia UTI (urinary tract infection) Vision problems Vitamin deficiency Surgical History Hx of cholecystectomy Family History Mother Cancer cervical, uterine Grandmother Cancer uterine Grandfather CVA (cerebral vascular accident) Other Alcohol abuse Arthritis Breast cancer Cervical cancer Depression Hormone deficiency Mental disorder Myocardial infarction Osteoporosis Psychiatric care Seizures Suicidal intent Uterine cancer Social History Smoking Status: Never smoker alcohol intake: current alcohol intake frequency: holidays/special occasions only Alcohol type: wine substance use type: does not use what type of physical activity do you participate in: other ROS Const Const: Positive for fatigue; Negative for weakness, headache(s), frequent falls, excessive sweating, weight gain or weight loss Eyes Eyes: Negative for blind spots, loss of peripheral vision, transient loss of vision, blurry vision, change in vision or double vision ENT ENT: Negative for headache(s), dizziness, tinnitus, Nosebleed/epistaxis or balance problems Cardio Chest Pain: No Palpitations: Yes Edema: None Muscle aches with walking: None Resp Respiratory: Positive for SOB with activity; Negative for SOB at rest, SOB orthopnea\SOB lying down or Cough GI GI: Negative nausea, vomiting, heartburn, bloating, vomiting blood/hematemesis, bright, red blood in stools or black,tarry stools : Negative for hematuria Musc Musc: Negative for muscle aches/ myalgia, muscle weakness, joint pain or balance problems Skin Skin: Negative rash or wounds Neuro Neuro: Negative for dizziness, lightheadedness, near syncope, syncope, orthostatic symptoms, frequent falls, headache(s), weakness, confusion, memory loss, restless legs, blurry vision or double vision Julio Hematologic/Lymphatic: Negative for easy bleeding or easy bruising Endo Endo: Positive for fatigue; Negative for cold intolerance, heat intolerance or excessive sweating Psych Psych: Negative for anxiety or depression Allergy Allergy/Immunology: Negative for rash Cardiology Exam Const Appearance: cooperative, healthy appearing, comfortable, no acute distress and well developed Nutritional Appearance: obese Orientation: alert, awake and oriented x3 Head Head: normal to inspection Ears: hearing grossly normal bilaterally Nose: external nose normal Face and Sinus: face symmetric Mouth: oral mucosae normal, lip normal and moist mucous membranes Eyes General: appearance normal, both eyes and all related structures Eyelids: eyelids normal Conjunctivae: conjunctivae normal Pupils: PERRL EOM: EOM intact bilaterally Neck Neck: normal visual inspection and trachea midline; Negative no JVD Carotids: Negative bruit Chest Chest inspection: normal inspection of the chest Auscultation: Bilateral: Clear to Auscultation Cardio Palpation: normal PMI Rate: regular rate Rhythm: regular rhythm Heart sounds: S1 normal and S2 normal; Negative rub, gallop or murmur GI GI: soft, no hepatosplenomegaly, bowel sounds present and obese Neuro General: patient alert, patient awake, patient oriented x3 and CN's II-XI intact bilaterally Extremities Pulses: Normal: Right Posterior Tibial Pulse, Left Posterior Tibial Pulse, Right Radial Pulse and Left Radial Pulse Lower Extremity Edema: None: Bilateral Psych Psychological: normal affect Supplemental Info Supplemental Information Labs: LDL Cholesterol 112 mg/dL (0-130) HDL Cholesterol 67 mg/dL (40-) Triglycerides 226 mg/dL (-199) H VLDL Cholesterol 45 mg/dL (5-40) H Diagnostics: No Data to Display Pulmonary: No Data to Display Assessment and Plan Assessment and Plan (1) Fatigue: Status: Acute (2) Tachycardia: Status: Acute (3) CLAIRE (dyspnea on exertion): Status: Acute (4) Elevated BP without diagnosis of hypertension: Status: Acute Orders: Plan Patient's stress test on 04/25/2022 was considered to be abnormal. On account of symptoms and abnormal stress test, she will proceed with heart catheterization. Based on results, further recommendation will be made. She will continue current medical therapy for ongoing blood pressure support.
--- NOTE | 2022-05-05 12:12 | CL.D_ITS ---
Patient Name: REHANA BROWNE Study Date: 05/02/2022 Performing: Valeriano Butt MD Ht: 68 inches 173 cm : 1970 Wt: 357.6 lbs 162 kg Age: 52 Gender: female BSA: 2.62 PROCEDURE(S) PERFORMED DC01-([id number])LHC/COR/LV CLINICAL PROFILE AND INDICATIONS Indications: Suspected CAD Heart Failure: None Stress/Imaging Date: 08/13/21 CAD Presentations: Symptom unlikely to be ischemic. CONCLUSIONS Normal coronary arteries Normal LV size, wall motion,and systolic function RECOMMENDATIONS Medical therapy DESCRIPTION OF PROCEDURE The patient arrived to the procedure lab. The risks and benefits of the procedure as well as a full d escription of our services here and current unavailability of surgical backup were fully explained to the patient and/or their significant other prior to the catheterization. The Timeout was completed, verifying the correct patient and procedure. The patient's procedural site was prepped and draped in the usual fashion. Local anesthetic was given subcutaneously to right radial region with Lidocaine 2% . Using a modified Seldinger technique, arterial access was obtained via the right radial artery, a 6 Fr sheath was inserted. Right Coronary Artery selective angiography was then performed in multiple v iews using a 5 Fr. 4.0 Drifting catheter. Left Coronary Artery selective angiography was performed in mu ltiple views using a 5 Fr. 4.0 Drifting catheter. Left Ventriculography was performed in STEPHENSON projection using a 5 Fr. Pigtail catheter. LV to AO pullback pressures were then recorded.The arterial sheath was pulled and a TR Band was applied for hemostasis CORONARY ANGIOGRAPHY DOMINANCE: Right Dominant LEFT HEART ASSESSMENT Left Ventricular Ejection Fraction: by LV Gram 60 % Normal LV wall motion Normal Left Ventricular systolic function Normal Left Ventricular systolic function LEFT MAIN: Angiographically normal LEFT ANTERIOR DESCENDING ARTERY: Angiographically normal CIRCUMFLEX ARTERY: Angiographically normal RIGHT CORONARY ARTERY: Angiographically normal COMPLICATIONS No Complications PROCEDURE MEDICATIONS Fentanyl 50 mcg IV Versed 1 mg IV Versed 1 mg IV Fentanyl 50 mcg IV Versed 1 mg IV Oxygen: 2 L/min via nasal cannula Aspirin (325mg) 1 Tabs PO @ 05/02/2022 09:25:17 Heparin given IA 05/02/2022 10:41:09 Verapamil 2.5mg, Ntg 100mcgs, 3000 units of Heparin given IA 05/02/2022 10:41:09 SUMMARY OF HEMODYNAMIC DATA Time AIR REST ECG 09:33:07 ECG 10:14:03 AO 119/87 (101) SA 10:42:07 AO 116/89 (104) 10:42:20 LV 137/10, 16 10:47:14 LV 129/11, 17 10:47:24 LV 149/16, 21 10:48:02 LVp 139/19, 24 10:48:06 AOp 147/90 (115) 10:48:13 Signed By Valeriano Butt MD On 05/02/2022 10:56:18 AM Valeriano Butt MD
== END 2022-05-02 13:35 | disposition home or self-care (01) ==
LOC: CLSP 08:57
PROVIDERS: Physician Assistant Medical; PCP Physician Assistant; Referring Provider Internal Medicine Cardiovascular Disease; Visit Provider Internal Medicine Cardiovascular Disease
DX: I25.10 Atherosclerotic heart disease of native coronary artery without angina pectoris (principal); G47.33 Obstructive sleep apnea (adult) (pediatric); R06.02 Shortness of breath; I10 Essential (primary) hypertension; E66.9 Obesity, unspecified; Z79.899 Other long term (current) drug therapy; Z79.84 Long term (current) use of oral hypoglycemic drugs
CPT/HCPCS: 36415; 71046; 80048; 81025; 85025; 85610; 85730; 93458; 99152; 99153; Q9967; C1769; C1894

== ENCOUNTER → 2022-08-08 | Outpatient (CLI) | payer MEDICAID, SELFPAY ==
[2022-08-08 16:07] LABS: Absolute Lymphocyte Count 1.65 X10^3/uL (0.83-4.51); Absolute Neutrophil Count 3.6 X10^3/uL (2.0-7.7); Basophil# 0.03 X10^3/uL; Basophil% 0.5 % (0-1); Eosinophil# 0.09 X10^3/uL; Eosinophils% 1.6 % (0-5); Hematocrit 42.1 % (37-47); Hemoglobin 13.7 g/dL (12.0-15.0); Lymphocyte # 1.65 X10^3/ul (0.83-4.51); Lymphocyte % 28.9 % (19-41); Mean Corp Hgb Conc 32.5 g/dL (32-36); Mean Corpuscular Hgb 29.5 pg (27.0-32.0); Mean Corpuscular Volume 90.7 fL (81-99); Mean Platelet Vol. 9.7 fl (6.2-12.0); Monocyte# 0.32 X10^3/uL; Monocyte% 5.6 % (0-10); NRBC Flagged by Analyzer 0 % (0-5); Neutrophil # 3.59 X10^3/uL (2.7-7.7); Platelet Count 302 K/mm3 (150-450); RBC Distribution Width CV 13.9 % (11.6-14.6); RBC Distribution Width SD 46.5 fl (35.1-43.9); Red Blood Count 4.64 M/mm3 (4.2-5.4); White Blood Count 5.7 K/mm3 (4.4-11.0)
[2022-08-08 16:10] LABS: Erythrocyte Sedimentation Rate 40 mm/hr (0-30)
[2022-08-08 16:51] LABS: AST(SGOT) 26 U/L (15-37); Alanine Aminotransfer ALT/SGPT 34 U/L (13-56); Albumin, Serum 3.7 g/dL (3.2-5.0); Alkaline Phosphatase 95 U/L (45-117); Bilirubin, Direct 0.22 mg/dL (0.00-0.30); EST Glomerular Filtration Rate 56 mL/min (>60); Est Glom Filt Rate - Afr Amer 68 mL/min (>60); Globulin 4.4 g/dL (2.2-4.2); Protein, Total 8.1 g/dL (6.4-8.2)
[2022-08-09 08:48] LABS: Hepatitis B Surface Antibody Non-Reactive; Hepatitis B Surface Antigen Non-Reactive (Nonreactive); Hepatitis C Antibody Non-Reactive (Nonreactive); Vitamin D,25 Hydroxy 82.6 ng/mL
[2022-08-10 11:09] LABS: QNTFERON TB Mitogen Value > 10.00 IU/mL (.); QNTFERON TB Nil Value 0 IU/mL (.); QNTFERON TB1+ Ag Value 0 IU/mL (.); QNTFERON TB2+ Ag Value 0 IU/mL (.)
[2022-08-10 17:09] LABS: Hepatitis B Core Ab Total Negative (Negative); QNTIFERON TB Positive Criteria Negative (Negative)
== END | disposition home or self-care (01) ==
PROVIDERS: PCP Physician Assistant; Referring Provider Internal Medicine Rheumatology; Visit Provider Internal Medicine Rheumatology
DX: M06.00 Rheumatoid arthritis without rheumatoid factor, unspecified site (principal); E55.9 Vitamin D deficiency, unspecified; Z11.59 Encounter for screening for other viral diseases; Z79.899 Other long term (current) drug therapy
CPT/HCPCS: 36415; 80076; 82306; 82565; 85025; 85652; 86140; 86431; 86480; 86704; 86706; 86803; 87340

== ENCOUNTER → 2023-03-08 | Outpatient (CLI) | payer MEDICAID, SELFPAY ==
--- NOTE | 2023-03-08 | EMB_PTH ---
PATIENT: REHANA BROWNE LOC: [facility] U#:[id number] AGE/SX: 53/F ROOM: RE03/08/[address]: Dr. Vanita Caceres DO : 1970 BED: DIS: 03/08/2023 SPEC #: [id number] RECD: 03/08/23 18:03 STATUS: MIGEL RJ #: [id number] PERRI: 03/08/23 00:[address]: Vanita Caceres DEPT: SURGICAL PATHOLOGY RECD BY: Thang Diaz ENTERED: 03/09/23 09:25 SP TYPE: ENDOM BX/C LIANA DR: DAVIN Lee Tissues: Endometrium, NOS Procedures: Surgery Specimen Level IV HEADER OPERATION: Endometrial biopsy PRE-OP DIAGNOSIS: Menorrhagia TISSUE SUBMITTED: Endometrial lining MICROSCOPIC DIAGNOSIS Endometrial biopsy: Scant strips of benign endometrial epithelium. Scant fragments of benign ecto- and endocervical epithelium and mucous. See comment. SJ:tr 03/10/2023 COMMENT The specimen predominantly consists of mucoid tissue. Clinical correlation and appropriate follow up are necessary. MICROSCOPIC DESCRIPTION Slides are reviewed. GROSS DESCRIPTION Received is one container labeled with the patient's name and not further designated. The specimen consists of multiple irregular fragments of hu mucoid tissue that in aggregate measure 1.0 x 0.8 x 0.1 cm. The specimen is totally submitted in one cassette. / PRETTY:tr 03/09/2023 TC:4 CPT: 36773
[2023-03-15 16:09] LABS: HPV APTIMA, High Risk Positive (Negative)
== END | disposition home or self-care (01) ==
PROVIDERS: PCP Physician Assistant; Referring Provider Obstetrics & Gynecology; Visit Provider Obstetrics & Gynecology
DX: Z12.4 Encounter for screening for malignant neoplasm of cervix (principal); N92.0 Excessive and frequent menstruation with regular cycle
CPT/HCPCS: 87624; 88175; 88305; G0145

== ENCOUNTER → 2023-04-06 | Outpatient (CLI) | payer MEDICAID, SELFPAY ==
[2023-04-06 14:24] LABS: Absolute Lymphocyte Count 1.12 X10^3/uL (0.83-4.51); Absolute Neutrophil Count 5.4 X10^3/uL (2.0-7.7); Basophil# 0.04 X10^3/uL; Basophil% 0.6 % (0-1); Eosinophil# 0.09 X10^3/uL; Eosinophils% 1.3 % (0-5); Hemoglobin 13.3 g/dL (12.0-15.0); Lymphocyte # 1.12 X10^3/ul (0.83-4.51); Lymphocyte % 15.7 % (19-41); Mean Corp Hgb Conc 30.9 g/dL (32-36); Mean Corpuscular Hgb 28.8 pg (27.0-32.0); Mean Corpuscular Volume 93.1 fL (81-99); NRBC Flagged by Analyzer 0 % (0-5); Neutrophil # 5.36 X10^3/uL (2.7-7.7); Neutrophil % 75.1 % (47-70); Platelet Count 215 K/mm3 (150-450); RBC Distribution Width CV 14.1 % (11.6-14.6); RBC Distribution Width SD 48.2 fl (35.1-43.9); Red Blood Count 4.62 M/mm3 (4.2-5.4); White Blood Count 7.1 K/mm3 (4.4-11.0)
[2023-04-06 14:29] LABS: Erythrocyte Sedimentation Rate 24 mm/hr (0-30)
[2023-04-06 14:48] LABS: ALB/GLOB Ratio 0.7 RATIO (0.9-2.4); AST(SGOT) 23 U/L (15-37); Alanine Aminotransfer ALT/SGPT 23 U/L (13-56); Albumin, Serum 3.4 g/dL (3.2-5.0); Alkaline Phosphatase 100 U/L (45-117); Anion Gap 5 (5-15); BUN 14 mg/dL (7-18); BUN/Creat Ratio 15.1 RATIO (10-20); Chloride 104 mmol/L (98-107); Creatinine, Serum 0.93 mg/dL (0.55-1.02); EST Glomerular Filtration Rate 68 mL/min (>60); Est Glom Filt Rate - Afr Amer 82 mL/min (>60); Globulin 4.7 g/dL (2.2-4.2); Glucose 119 mg/dL (74-106); Potassium 3.7 mmol/L (3.5-5.1); Protein, Total 8.1 g/dL (6.4-8.2); Sodium Level 139 mmol/L (136-145)
[2023-04-06 15:01] LABS: Hemoglobin A1c 5.8 % (3.8-5.6)
== END | disposition home or self-care (01) ==
PROVIDERS: PCP Physician Assistant; Referring Provider Nurse Practitioner Family; Visit Provider Nurse Practitioner Family
DX: R73.03 Prediabetes (principal); E66.9 Obesity, unspecified; E28.2 Polycystic ovarian syndrome
CPT/HCPCS: 36415; 80053; 83036; 85025; 85652

== ENCOUNTER 2023-04-18 10:03 | Day surgery (SDC) | payer MEDICAID, SELFPAY ==
--- NOTE | 2023-04-18 10:27 | PCM.HP.BLA ---
History and Physical Date of Admission: 04/18/23 Intake Vital Signs 03/08/2313:15 04/06/2314:19 04/06/2314:21 Height 5 ft 8 in 5 ft 8 in 5 ft 8 in Weight: 337 lb 334 lb BMI 51.2 50.8 BP 110/82 H 124/84 H Intake Visit Reasons: colp under anesthia Echocardiographer Required: No Is patient in pain?: No Allergies No Known Allergies Allergy (Verified 04/06/23 14:19) Medications fluticasone propionate 50 mcg/actuation nasal spray,suspension gm intranasal 01/19/22 [History Confirmed 04/06/23] levothyroxine 100 mcg tablet 100 mcg PO 01/19/22 [History Confirmed 04/06/23] cyclobenzaprine 10 mg tablet 10 mg PO HS PRN Muscle Pain 03/22/22 [History Confirmed 04/06/23] atorvastatin 20 mg tablet 20 mg PO QHS #90 tabs 05/10/22 [Rx Confirmed 04/06/23] cholecalciferol (vitamin D3) 1,250 mcg (50,000 unit) capsule 1,250 mcg PO 2XW 05/10/22 [History Confirmed 04/06/23] duloxetine 30 mg capsule,delayed release (Cymbalta) 30 mg PO QAM 05/10/22 [History Confirmed 04/06/23] duloxetine 60 mg capsule,delayed release 60 mg PO QHS 05/10/22 [History Confirmed 04/06/23] pregabalin 50 mg capsule (Lyrica) 50 mg PO QHS 05/10/22 [History Confirmed 04/06/23] tofacitinib 11 mg tablet,extended release 24 hr (Xeljanz XR) 11 mg PO DAILY 08/18/22 [History Confirmed 04/06/23] alcohol swabs (Alcohol Prep Pads) 1 pad topical .prn #100 pad 08/29/22 [Rx Confirmed 04/06/23] metformin 1,000 mg tablet 1,000 mg PO BID #60 tabs 12/21/22 [Rx Confirmed 04/06/23] lisinopril 5 mg tablet 5 mg PO DAILY #90 tabs 01/23/23 [Rx Confirmed 04/06/23] dulaglutide 1.5 mg/0.5 mL subcutaneous pen injector (Trulicity) 1.5 mg (0.5 mL) subcut QWEEK #6 mL 03/06/23 [Rx Confirmed 04/06/23] blood sugar diagnostic (OneTouch Ultra Test strips) 03/29/23 [History Confirmed 04/06/23] Post menopausal: No Patient : No : No PFSH Medical History Abnormal stress test Arthritis ASCUS with positive high risk HPV cervical Asthma Back problem CTS (carpal tunnel syndrome) Essential hypertension Gall stones Gastrointestinal problem Gout H/O emotional problems Headache Hormone deficiency Hyperandrogenism Hyperlipidemia Hypoglycemia Hypothyroidism Morbid obesity Obstructive sleep apnea Osteoarthritis PCOS (polycystic ovarian syndrome) Polyarthralgia UTI (urinary tract infection) Vision problems Vitamin deficiency Surgical History H/O endoscopy History of left heart catheterization (05/02/22) Hx of cholecystectomy Family History Mother Cancer cervical, uterineGrandmother Cancer uterineGrandfather CVA (cerebral vascular accident)Other Alcohol abuse Arthritis Breast cancer Cervical cancer Depression Hormone deficiency Mental disorder Myocardial infarction Osteoporosis Psychiatric care Seizures Suicidal intent Uterine cancer Social History Smoking Status: Never smoker alcohol intake: current alcohol intake frequency: holidays/special occasions only Alcohol type: wine substance use type: does not use what type of physical activity do you participate in: other HPI colp under anesthia Details: LARISA BROWNE is a 53 year old who presents for pre-operative evaluation for colposcopy under anesthesia. She also was supposed to have a biopsy at her [facility] practice. We discussed performin a pap under anesthesia due to ASCUS + HPV, and for the biopsy will perform a small leep. Will also do a dilation and curettage at the time of the procedure. Larisa continues to complain of cramping that takes place once a month when she should have a period. She has not bled in several months, however she does not believe she is in menopause. She thinks this is just her PCOS and she will bleed soon. She continues to request a hysterectomy. ROS Const ROS Unobtainable: All systems reviewed & are unremarkable except as noted in H Resp Resp: Reports system reviewed and no additional complaints, except as documented; Denies cough GI GI: Reports as per HPI Psych Psych: Reports system reviewed and no additional complaints, except as documented Exam Const General: cooperative, healthy appearing, comfortable and no acute distress Resp Effort & Inspection: normal respiratory effort Skin General: no rashes or lesions noted Psych Appearance: grossly normal Speech and Movement: speech and movement normal Coding Level of Care Code Off vis,est,level 4 Diagnoses Sleep apnea G47.30 ASCUS with positive high risk HPV cervical R87.610; R87.810 Menorrhagia with irregular cycle N92.1 Essential hypertension I10 Assessment and Plan Assessment and Plan (1) Sleep apnea: Status: Acute Comment: uses c-pap (2) ASCUS with positive high risk HPV cervical: Status: Acute (3) Menorrhagia with irregular cycle: Status: Chronic (4) Essential hypertension: Status: Chronic Plan After discussing the patient's diagnosis and treatment plan options, patient wishes to proceed with surgical management. I have discussed with the patient the risks, benefits, and alternatives of the procedure which include but are not limited to risks of anesthesia, bleeding, infection, possible damage to bowel, bladder, or surrounding vasculature which could lead to additional surgery to evaluate any complications. Patient agrees to procedure and wishes to proceed. ACOG/uptodate references given for additional information regarding procedure. plan for dilation and curettage, colposcopy and cervical biopsy/ leep under anesthesia
[2023-04-18 10:41] VITALS: BP 136/86; PULSE 80; RESP 18; TEMP 36.7; O2SAT 96; BMI 50.9
[2023-04-18] MEDS: Lactated Ringers 1,000 ML 15 ML IV (10:45)
[2023-04-18 10:50] LABS: Internal QC Validated? YES +Cl - CLEAR BKGD; Pregnancy, Urine Negative Negative
--- NOTE | 2023-04-18 11:35 | EMB_PTH ---
PATIENT: REHANA BROWNE LOC: [facility] U#:[id number] AGE/SX: 53/F ROOM: RE04/18/[address]: Dr. Vanita Caceres DO : 1970 BED: DIS: 04/18/2023 SPEC #: [id number] RECD: 04/18/23 14:26 STATUS: MIGEL RJ #: [id number] PERRI: 04/18/23 11:[address]: Vanita Caceres DEPT: SURGICAL PATHOLOGY RECD BY: Yahaira Sung ENTERED: 04/19/23 07:52 SP TYPE: ENDOM BX/C OTHR DR: DAVIN Lee Tissues: A - Endometrium, NOS B - Uterine cervix, NOS Procedures: Surgery Specimen Level IV Surgery Specimen Level V HEADER OPERATION: Exam under anesthesia, colposcopy with LEEP procedure, D & C PRE-OP DIAGNOSIS: ASCUS with positive high risk HPV cervical TISSUE SUBMITTED: A - Endometrial curettings, B - Cervix MICROSCOPIC DIAGNOSIS A. Endometrial curettings: Proliferative endometrium. A polypoid fragment of endometrial tissue with cystic changes may represent a fragment of benign endometrial polyp. Fragments of benign ecto- and endocervical epithelium. B. Cervix, LEEP conization: Negative for dysplasia. Chronic inflammation. SJ:rg 04/20/2023 COMMENT Clinical correlation and appropriate follow up are necessary. Please make reference to previous specimen ([id number]) endometrial biopsy with diagnosis of scant strips of benign endometrial epithelium and scant fragments of benign ecto- and endocervical epithelium and mucous. MICROSCOPIC DESCRIPTION Slides are reviewed. GROSS DESCRIPTION A - Received in fixative is one container labeled with the patient's name and designated endometrial curettings. The specimen consists of multiple irregular fragments of brown soft tissue that in aggregate measure 2.0 x 0.5 x 0.1 cm. The specimen is totally submitted in one cassette. B - Received in fixative is one container labeled with the patient's name and designated cervix. The specimen consists of three pieces of hu, indurated tissue measuring 1.5 x 0.8 x 0.5 cm and 2.0 x 0.5 x 0.3 cm and 1.5 x 1.0 x 0.5 cm. No mucosal lesion is identified. Non-mucosal surface is inked black. All three pieces are serially sectioned. The entire specimen is submitted in three cassettes with each cassette containing one piece. / SJ:rg 04/19/2023 TC:5 CPT: 33102, 26787
--- NOTE | 2023-04-18 12:16 | DCINST_ITS ---
Discharge Instructions Diet Discharge Diet: No restrictions Activity Discharge Activity: Return to Normal Activity and [address] (while taking narcotic pain mediations.) May resume sexual activity in: 4 weeks (Nothing in the vagina for 4 weeks.) Weight Bearing Status: Weight bearing as tolerated Lifting Restrictions: none Dressing / Incision Call your doctor if you observe: Fever of 101 or Higher and Using more than 1 pad per hour Follow Up Care Please Follow Up With: Vanita Caceres DO When: Call [phone] for follow-up appointment. Test Results: Test results from this visit will be discussed in further detail at your follow- up appointment, if applicable. Discharge Plan Admission Primary Reason for Your Visit: LEEP and D&C Attending Provider: Vanita Caceres Primary Care Provider: Robyn Kate Discharge Orders/Prescriptions Prescriptions: Continued levothyroxine 100 mcg tablet 100 mcg PO DAILY fluticasone propionate 50 mcg/actuation spray,suspension 1 spray intranasal PRN PRN (Reason: nasal congestion) duloxetine 60 mg capsule,delayed release(DR/EC) 60 mg PO QHS Xeljanz XR 11 mg tablet extended release 24 hr 5 mg PO BID cyclobenzaprine 10 mg tablet 10 mg PO HS PRN (Reason: Muscle Pain) duloxetine [Cymbalta] 30 mg capsule,delayed release(DR/EC) 30 mg PO QAM cholecalciferol (vitamin D3) 1,250 mcg (50,000 unit) capsule 1,250 mcg PO MOTH pregabalin [Lyrica] 50 mg capsule 50 mg PO QHS atorvastatin 20 mg tablet 40 mg PO QHS lisinopril 5 mg tablet 5 mg PO QHS Trulicity 1.5 mg/0.5 mL pen injector 1.5 mg subcut FR metformin 1,000 mg tablet 1,000 mg PO BID Qty: 60 6RF (DME) OneTouch Ultra Test Strip See Rx Instructions .Route Rx Instructions: test blood sugar twice daily quantity 200 days supply 50 Referrals / Follow Up: Robyn Kate PA [Primary Care Provider] - Disposition Disposition (needs filled in before D/C Order can be placed): Home, Self Care
[2023-04-18] MEDS: Iodine/Potassium Iodide 14ML Bottle 1 DRP TOPICAL (12:20)
[2023-04-18] MEDS: FERRIC SUBSULFATE 8 GM SOLN (12:25)
[2023-04-18] MEDS: Lidocaine 1% /Epi 1:100 (20ml) 20 ML Vial (12:30)
--- NOTE | 2023-04-18 12:36 | OP.PCM_ITS ---
Problems Associated Problem List Diagnoses (1) Amenorrhea: (2) Obesity: (3) ASCUS with positive high risk HPV cervical: (4) PCOS (polycystic ovarian syndrome): Report of Operation Date of Procedure: 04/18/23 Pre-Operative Diagnosis: ascus, HPV positive pap, morbid obesity, pCOS, history of menorrhagia, current amenorrhea Post-Operative Diagnosis: ascus, HPV positive pap, morbid obesity, pCOS, history of menorrhagia, current amenorrhea Surgery/Procedure Performed:: dilation and curettage, colposcopy, leep procedure Description of Surgical Findings:: normal appearing cervix, atrophic appearing endometrial tissue Surgeon: Vanita Caceres nut and bolt assembler: None Type of Anesthesia: MAC/Supplemental/Local Specimen's removed: endometrial curettings, cervical leep biopsy Drains: none Estimated Blood Loss (mL): 20cc Description of Procedure: Patient was prepped and draped in a normal sterile fashion under MAC anesthesia. A weighted speculum was placed in the vagina and the anterior lip of the cervix was grasped with a single-tooth tenaculum. A paracervical block was placed with 1% lidocaine. Cervix was progressively dilated to allow passage of a 5 mm curettage.. Curettage was performed and scant amount of tissue was sent to pathology. next, Lugol's soln was applied to the cervix and a colposcopy was performed showing wide spread dark staining of the cervix around the transf ormation zone. Due to high BMI and difficulty with exams, the decision was made to perform a small leep procuedure. The cervix specimen was passed off for pathology analysis. All instruments were removed from the vagina and excellent hemostasis was noted. Patient was awoken and taken to recovery in stable condition. Admit VTE Documentation VTE Present on Admission: No VTE Mechan Device Prophylaxis: SCD's VTE Pharm Prophylaxis ordered?: No Multi Select Codes Urinary/Genital Urinary/Genital CPT Codes: 82316 LEEP and Other Procedure See Report
[2023-04-18 12:45] VITALS: BP 126/88; BP 136/86; PULSE 94; RESP 16; TEMP 36.9; O2SAT 93
[2023-04-18 12:50] VITALS: BP 123/83; BP 136/86; PULSE 106; RESP 16; O2SAT 94
[2023-04-18 12:55] VITALS: BP 122/83; BP 136/86; PULSE 94; RESP 16; O2SAT 93
[2023-04-18 13:00] VITALS: BP 131/84; BP 136/86; PULSE 89; RESP 16; TEMP 36.6; O2SAT 93
[2023-04-18 14:10] VITALS: BP 126/76; BP 136/86; PULSE 85; RESP 16; TEMP 36.2; O2SAT 97
== END 2023-04-18 14:35 | disposition home or self-care (01) ==
LOC: SDC 10:04 → AC 10:04
PROVIDERS: PCP Physician Assistant; Referring Provider Obstetrics & Gynecology; Visit Provider Obstetrics & Gynecology
PROC: 0UBC7ZZ Excision of Cervix, Via Natural or Artificial Opening (ICD-10-PCS; CPT 57522; principal; 2023-04-18 11:25)
DX: R87.610 Atypical squamous cells of undetermined significance on cytologic smear of cervix (ASC-US) (principal); E66.01 Morbid (severe) obesity due to excess calories; Z68.43 Body mass index [BMI] 50.0-59.9, adult; R87.810 Cervical high risk human papillomavirus (HPV) DNA test positive; N72 Inflammatory disease of cervix uteri; N92.1 Excessive and frequent menstruation with irregular cycle; E28.2 Polycystic ovarian syndrome; I10 Essential (primary) hypertension; G47.33 Obstructive sleep apnea (adult) (pediatric); E78.5 Hyperlipidemia, unspecified
CPT/HCPCS: 57522; 00940; 81025; 86850; 86900; 86901; 88305; 88307; J7120; J2405

== ENCOUNTER 2023-04-26 21:29 | Emergency (ER) | payer MEDICAID, SELFPAY ==
[2023-04-26 21:31] VITALS: BP 151/103; PULSE 78; RESP 18; TEMP 36.9; O2SAT 100
[2023-04-26 21:53] VITALS: BMI 51.3
--- NOTE | 2023-04-26 22:09 | CT_ITS ---
INDICATION: RLQ abd pain EXAMINATION: CT ABDOMEN AND PELVIS WITH CONTRAST - CT Abdomen And Pelvis W/ Contrast Injection TECHNIQUE: Helically acquired images were obtained of the abdomen and pelvis following IV contrast. A radiation dose optimization technique was used for this scan. IV Contrast dosage and agent: 100 cc [id number] Oral contrast: None. COMPARISON: None. FINDINGS: LOWER CHEST: Lung bases are clear. No cardiomegaly or pericardial effusion. LIVER: Homogeneous. No concerning focal mass. GALLBLADDER AND BILIARY TREE: Gallbladder not identified. No intra- or extrahepatic biliary ductal dilation. PANCREAS: No focal cystic or solid mass. SPLEEN: Splenomegaly with complex low-attenuation suspicious for infarction. ADRENAL GLANDS: No nodules. KIDNEYS AND URETERS: Right hydroureteronephrosis. 6 mm calculus in the distal left ureter at the UVJ. PERITONEUM: Trace ascites in the left upper quadrant. No free air. BOWEL: Normal appendix. No stomach or bowel distension. No focal inflammatory change. LYMPH NODES: No enlarged mesenteric or retroperitoneal lymph nodes. VESSELS: Aorta is non-dilated. URINARY BLADDER: Nondistended. REPRODUCTIVE ORGANS: No pelvic masses. ABDOMINAL WALL: No discrete abdominal or pelvic wall hernia. BONES: No acute or aggressive abnormality. CT/Abdomen/Pelvis W IV Cont ONLY IMPRESSION: Partially obstructing 6 mm distal right ureteral calculus. 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 Correlate with history of trauma for possible chronic laceration. Electronically Signed: Anthony Gan MD at 23:24 EDT ,
--- NOTE | 2023-04-26 22:10 | ED.VIS.GI ---
HPI HPI - GI History of Present Illness Chief Complaint: Abd Pain Detail of Chief Complaint: Right lower quadrant abdominal pain for the last 6 hours. Informant: patient Abdominal Pain/Flank Pain Onset: Today Context: Sudden Onset Timing: Continuous Location: RLQ Current Severity: Moderate Maximum Severity: Moderate Worsened by: Nothing Relieved by: Nothing Nausea/Vomiting/Emesis GI Symptom: Negative for Nausea or Vomiting Diarrhea/Melena/Hematochezia GI Symptom: Negative for Diarrhea, Melena or Hematochezia Associated Symptoms Associated Symptoms: Negative for Dysuria, Frequency, Hematuria or Urgency Narrative Narrative: 53-year-old female right lower quadrant abdominal pain for 6 hours. No prior history. Had a LEEP procedure done about a week ago. Denies any nausea, vomiting or diarrhea. Denies fever or chills. Denies dysuria or hematuria. Prior similar symptoms: No Recent Illness/Hospitalization: No PFSH PFSH Medical History Abnormal stress test Ambulates with cane Anxiety Arthritis ASCUS with positive high risk HPV cervical Asthma Back pain Blackout Cardiology follow-up encounter Chronic fatigue CPAP (continuous positive airway pressure) dependence De Quervain's disease (radial styloid tenosynovitis) Depression Diabetes Dietary restriction DVT (deep venous thrombosis) Essential hypertension Fatty liver Fibromyalgia High cholesterol History of pain when walking History of stress test Hormone deficiency Hyperandrogenism Hyperlipidemia Hypertension Hypothyroidism Leg cramps Migraine headache Morbid obesity Non-smoker Osteoarthritis Osteoporosis PCOS (polycystic ovarian syndrome) Polyarthralgia Shortness of breath on exertion Syncope Tachycardia Thyroid disease Vision problems Vitamin deficiency Wears glasses Home Medications fluticasone propionate 50 mcg/actuation nasal spray,suspension 1 spray intranasal PRN PRN nasal congestion 01/19/22 [History Last Taken Unknown] levothyroxine 100 mcg tablet 100 mcg PO DAILY 01/19/22 [History Last Taken Unknown] cyclobenzaprine 10 mg tablet 10 mg PO HS PRN Muscle Pain 03/22/22 [History Last Taken Unknown] cholecalciferol (vitamin D3) 1,250 mcg (50,000 unit) capsule 50,000 unit PO .2xweek supplement 05/10/22 [History Last Taken Unknown] duloxetine 30 mg capsule,delayed release (Cymbalta) 30 mg PO QAM 05/10/22 [History Last Taken Unknown] duloxetine 60 mg capsule,delayed release 60 mg PO QHS 05/10/22 [History Last Taken Unknown] pregabalin 50 mg capsule (Lyrica) 50 mg PO QHS 05/10/22 [History Last Taken Unknown] tofacitinib 11 mg tablet,extended release 24 hr (Xeljanz XR) 5 mg PO BID 08/18/22 [History Last Taken Unknown] metformin 1,000 mg tablet 1,000 mg PO BID #60 tabs 12/21/22 [Rx Last Taken Unknown] blood sugar diagnostic ([employer] Ultra Test strips) 03/29/23 [History Last Taken Unknown] atorvastatin 20 mg tablet 40 mg PO QHS 04/11/23 [History Last Taken Unknown] dulaglutide 1.5 mg/0.5 mL subcutaneous pen injector (Trulicity) 1.5 mg subcut FR 04/11/23 [History Last Taken Unknown] lisinopril 5 mg tablet 5 mg PO QHS 04/11/23 [History Last Taken Unknown] meloxicam 15 mg tablet 15 mg PO DAILY pain 04/26/23 [History Last Taken 04/25/23] warfarin 5 mg tablet 5 mg PO DAILY blood thinner 04/26/23 [History Last Taken Unknown] cephalexin 500 mg capsule 500 mg PO Q8H #15 caps 04/27/23 [Rx Last Taken Unknown] Allergy/AdvReac Type Severity Reaction Status Date / Time No Known Allergies Allergy Verified 04/26/23 21:31 Family History Mother Cancer cervical, uterine Grandmother Cancer uterine Grandfather CVA (cerebral vascular accident) Other Alcohol abuse Arthritis Breast cancer Cervical cancer Depression Hormone deficiency Mental disorder Myocardial infarction Osteoporosis Psychiatric care Seizures Suicidal intent Uterine cancer Surgical History H/O colposcopy with cervical biopsy H/O endoscopy History of cholecystectomy History of elbow surgery History of elbow surgery History of left heart catheterization (05/02/22) History of tonsillectomy and adenoidectomy Hx laparoscopic cholecystectomy Social History Smoking Status: Never smoker alcohol intake: current alcohol intake frequency: holidays/special occasions only Alcohol type: wine substance use type: does not use what type of physical activity do you participate in: other ROS ROS ED ROS Narrative Abdominal exam. Review of Systems ROS Unobtainable: Denies due to encephalopathy Constitutional Constitutional ED: Denies chills or fever(s) ENT ENT ED: Denies ear pain Cardiovascular Cardiovascular: Denies chest pain Respiratory/Chest Respiratory/Chest: Denies cough Gastrointestinal Gastrointestinal: Reports abdominal pain; Denies constipation, diarrhea, melena, nausea or vomiting Genitourinary Genitourinary ED: Denies dysuria or hematuria Musculoskeletal Musculoskeletal: Denies arthralgias Integumentary Denies abscess Neurologic Neurologic: Denies headache(s) Psychiatric Psychiatric: Denies anxiety Endocrine Endocrinology: Denies polydipsia Hematologic/Lymphatic Hematologic/Lymphatic: Denies easy bleeding Allergic/Immunologic Allergic/Immunologic ED: Denies mouth swelling EXAM Physical Exam Narrative Exam Narrative: 53-year-old female complaining of pain. Vital signs are stable afebrile. Does not look septic or toxic. H EENT exam unremarkable. Neck nontender. Lungs clear. Heart regular rhythm rate about 80 no murmur. Abdomen soft nondistended normal bowel sounds no peritoneal signs. She points to pain in right lower quadrant however its not reproducible. There is no hernia or mass. No signs of obstruction. No pulsatile mass. Moving all 4 extremities. Back nontender. She is awake and alert. Moving all 4 extremities. Const Vital Signs: 04/26/23 21:31 Temperature 98.4 F Temperature Source Temporal Pulse Rate 78 Respiratory Rate 18 Blood Pressure 151/103 H Blood Pressure Mean 119 Pulse Ox 100 Positive well nourished and well developed; Negative for cachectic, contractures or unkempt General Appearance ED: well developed and NAD; Negative for unkempt, cachectic, contractures or pallor Nutritional Appearance: Negative for cachectic HEENT Reports moist mucous membranes normocephalic and atraumatic; Negative for trauma or tenderness Eyes PERRL and EOMs intact bilaterally General Eye ED: Negative for pale conjunctiva or scleral icterus Neck no lymphadenopathy, supple and no JVD General: Negative for tenderness Carotids: Negative for other Lymph Lymphatic: Negative for other Resp normal respiratory effort and clear to auscultation bilaterally Effort and Inspection: Negative for respiratory distress Auscultation: Negative for rales, rhonchi or wheezes Cardio regular rate, regular rhythm, S1 normal heart sound, S2 normal heart sound and no murmurs Rate: Negative for bradycardia or tachycardic Rhythm: Negative for abnormal rhythm GI non-tender, non-distended and no masses Inspection: Negative for abdominal distention Auscultation: normoactive bowel sounds Palpation: soft; Negative for tender, guarding, rigid, hernia, mass, pulsatile mass or rebound tenderness present Back/Spine no CVA tenderness General Back: Negative for CVA tenderness Cervical Spine: Negative for cervical spine tenderness Thoracic Spine / Upper Back: Negative for thoracic spinal tenderness Lumbar Spine / Lower Back: Negative for lumbar spinal tenderness Extremity full ROM General Extremety ED: Negative for edema or tenderness General Extremity: Negative for edema Neuro CN's II-XII intact bilaterally and moves all extremities Sensorium / Orientation: alert, oriented to person, oriented to place and oriented to time; Negative for orientation impaired, confused, lethargic or stuporous Motor Exam: strength 5/5 throughout Psych mental status grossly normal and thought process normal Appearance: Negative for unkempt Attitude: No agitated Mood & Affect: Negative for depressed, anxious or tearful Skin no wounds General Skin Exam: Negative for jaundice or pallor Lesions: no lesions Rashes: no rashes Trauma: Negative for abrasion Nails: Negative for discolored MDM MDM MDM Narrative Medical decision making narrative: 53-year-old right lower quadrant abdominal pain. Is not reproducible acute. Kidney stone versus appendicitis versus other. CAT scan and labs. Treated with IV morphine, Zofran and Toradol. Repeat exam patient feels much better at 12:25 AM. We discussed all of her test results and her CAT scan. She is never had a kidney stone before. She has Vicodin at home for pain she does not need any other pain medication. She uses that and Motrin. Fluids. Fiber to prevent constipation. Strain for the stone. The urine is most likely contaminated but with a hydroureter and hydronephrosis I will put her on an antibiotic in case there is any infection. She be placed on Keflex 3 times a day for 5 days. History & Record Review Discussion w/independent historian: Patient Lab Data Attestation: I reviewed the patient's lab results. Lab results narrative: CBC unremarkable. White count of 7. H&H 13 and 41. Platelets 194. CMP unremarkable. Gap of 5. Normal BUN and creatinine is 0.8. Liver enzymes unremarkable. Serum test negative. Urinalysis shows greater than 100 red cells. 25-50 white cells. However it is contaminated with 10-25 epithelial cells. 1+ bacteria. No nitrites. CAT scan shows a distal right 6 mm kidney stone with partial obstruction with hydronephrosis and hydroureter. Labs: Laboratory Results - last 24 hr 04/26/23 04/26/23 22:10 22:24 WBC 7.3 RBC 4.63 Hgb 13.4 Hct 41.8 MCV 90.3 MCH 28.9 MCHC 32.1 RDW Std Deviation 47.8 H RDW Coeff of Jose 14.6 Plt Count 194 MPV 9.3 Immature Gran % (Auto) 0.400 Neut % (Auto) 73.2 H Lymph % (Auto) 17.2 L [place] % (Auto) 6.5 Eos % (Auto) 2.2 Baso % (Auto) 0.5 Absolute Neuts (auto) 5.3 Absolute Lymphs (auto) 1.25 Nucleated RBC % 0 Sodium 137 Potassium 4.5 Chloride 106 Carbon Dioxide 26.0 Anion Gap 5 BUN 12 Creatinine 0.89 Estim Creat Clear Calc 75.44 Est GFR (MDRD) Af Amer 86 Est GFR (MDRD) Non-Af 71 BUN/Creatinine Ratio 13.4 Glucose 117 H Calcium 9.5 Total Bilirubin 0.60 AST 33 ALT 24 Alkaline Phosphatase 106 Total Protein 7.8 Albumin 3.4 Globulin 4.4 H Albumin/Globulin Ratio 0.8 L Serum , Qual NEGATIVE Urine Color Yellow Urine Clarity Cloudy Urine pH 6.0 Ur Specific [place] 1.020 Urine Protein 30 H Urine Glucose (UA) Normal Urine Ketones Negative Urine Occult Blood 250 H Urine Nitrite Negative Urine Bilirubin Negative Urine Urobilinogen 1 H Ur Leukocyte Esterase 500 H Urine RBC > 100 SEEN Urine WBC 25-50 SEEN Ur Squamous Epith Cells 10-25 SEEN Urine Bacteria 1+ Urine Mucus 0 SEEN Radiography Diagnostic Testing: Clinical Impression(s) from Imaging Studies Abdomen/Pelvis CT 04/26/23 22:09 IMPRESSION: Partially obstructing 6 mm distal right ureteral calculus. 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 Correlate with history of trauma for possible chronic laceration. Electronically Signed: Anthony Gan MD at 23:24 EDT , ADDENDUM: 04/26/23 8635 IMPRESSION: undefined Discharge Plan Triage Chief Complaint: Abd Pain ED Provider: Jomar Rios Dx/Rx/DC Orders Clinical Impression: Kidney stone on right side Instructions: ED Kidney Stone w/ Colic Prescriptions: New cephalexin 500 mg capsule 500 mg PO Q8H Qty: 15 0RF No Action levothyroxine 100 mcg tablet 100 mcg PO DAILY fluticasone propionate 50 mcg/actuation spray,suspension 1 spray intranasal PRN PRN (Reason: nasal congestion) duloxetine 60 mg capsule,delayed release(DR/EC) 60 mg PO QHS Xeljanz XR 11 mg tablet extended release 24 hr 5 mg PO BID cyclobenzaprine 10 mg tablet 10 mg PO HS PRN (Reason: Muscle Pain) duloxetine [Cymbalta] 30 mg capsule,delayed release(DR/EC) 30 mg PO QAM cholecalciferol (vitamin D3) 1,250 mcg (50,000 unit) capsule 50,000 unit PO .2xweek pregabalin [Lyrica] 50 mg capsule 50 mg PO QHS atorvastatin 20 mg tablet 40 mg PO QHS lisinopril 5 mg tablet 5 mg PO QHS Trulicity 1.5 mg/0.5 mL pen injector 1.5 mg subcut FR meloxicam 15 mg tablet 15 mg PO DAILY Patient Comments: TAKE 1 TABLET BY MOUTH ONCE DAILY warfarin 5 mg tablet 5 mg PO DAILY metformin 1,000 mg tablet 1,000 mg PO BID Qty: 60 6RF (DME) OneTouch Ultra Test Strip See Rx Instructions .Route Rx Instructions: test blood sugar twice daily quantity 200 days supply 50 Primary Care Provider: Robyn Kate Referrals: Yuval Mccarty MD [Med Staff - Active Staff] - 3-5 Days if not improving Robyn Kate PA [Primary Care Provider] - As Needed Activity Restrictions/Additional Instructions: Use your home Vicodin and Motrin for pain. Strain your urine for the past stone. At the 6 mm stone it should pass. Keflex, the antibiotic, in case you also have an associated urinary tract infection but look contaminated. Follow-up with your primary care provider or the urologist if not improving. Return to the emergency department if you are feeling a lot worse or develop a fever. Plenty of fluids out pushed the stone through. Fruits, vegetables, fiber and stool softener prevent constipation with the pain medication. Disposition Disposition: Home, Self Care
[2023-04-26 22:27] LABS: Mucous, Urine 0 SEEN /hpf (<or=2+)
[2023-04-26] MEDS: Morphine 4 MG/ML Syringe 6 MG IV (22:29)
[2023-04-26] MEDS: Ondansetron 4 MG/2 ML Vial IV (22:29)
[2023-04-26] MEDS: Ketorolac 30 MG/ML Syringe IV (22:29)
[2023-04-26 22:32] LABS: Absolute Lymphocyte Count 1.25 X10^3/uL (0.83-4.51); Absolute Neutrophil Count 5.3 X10^3/uL (2.0-7.7); Basophil# 0.04 X10^3/uL; Basophil% 0.5 % (0-1); Eosinophil# 0.16 X10^3/uL; Eosinophils% 2.2 % (0-5); Hematocrit 41.8 % (37-47); Hemoglobin 13.4 g/dL (12.0-15.0); Lymphocyte # 1.25 X10^3/ul (0.83-4.51); Lymphocyte % 17.2 % (19-41); Mean Corp Hgb Conc 32.1 g/dL (32-36); Mean Corpuscular Hgb 28.9 pg (27.0-32.0); Mean Corpuscular Volume 90.3 fL (81-99); Mean Platelet Vol. 9.3 fl (6.2-12.0); Monocyte# 0.47 X10^3/uL; Monocyte% 6.5 % (0-10); NRBC Flagged by Analyzer 0 % (0-5); Neutrophil # 5.33 X10^3/uL (2.7-7.7); Neutrophil % 73.2 % (47-70); Platelet Count 194 K/mm3 (150-450); RBC Distribution Width CV 14.6 % (11.6-14.6); RBC Distribution Width SD 47.8 fl (35.1-43.9); Red Blood Count 4.63 M/mm3 (4.2-5.4); White Blood Count 7.3 K/mm3 (4.4-11.0)
[2023-04-26 22:37] LABS: Color, Urine Yellow (Yellow); Glucose, Dipstick Normal (Normal); Ketone-Dipstick Negative (Negative); Leukocyte Esterase-Dipstick 500 /ul (Negative); Nitrite-Dipstick Negative (Negative); Occult Blood-Urine 250 /ul (Negative); Protein-Dipstick 30 mg/dl (Negative); Urine Bilirubin Dipstick Negative (Negative); Urine Clarity Cloudy (Clear); Urine Urobilinogen 1 mg/dl (Normal)
[2023-04-26 22:38] LABS: Internal QC Validated? YES +Cl - CLEAR BKGD; Pregnancy, Serum, hCG Quali. NEGATIVE Negative
[2023-04-26 22:56] LABS: ALB/GLOB Ratio 0.8 RATIO (0.9-2.4); AST(SGOT) 33 U/L (15-37); Alanine Aminotransfer ALT/SGPT 24 U/L (13-56); Albumin, Serum 3.4 g/dL (3.2-5.0); Alkaline Phosphatase 106 U/L (45-117); Anion Gap 5 (5-15); BUN 12 mg/dL (7-18); BUN/Creat Ratio 13.4 RATIO (10-20); Calcium,Total 9.5 mg/dL (8.5-10.1); Chloride 106 mmol/L (98-107); Creatinine, Serum 0.89 mg/dL (0.55-1.02); EST Glomerular Filtration Rate 71 mL/min (>60); Est Glom Filt Rate - Afr Amer 86 mL/min (>60); Estimated Creatinine Clearance 75.44 ml/min; Globulin 4.4 g/dL (2.2-4.2); Glucose 117 mg/dL (74-106); Potassium 4.5 mmol/L (3.5-5.1); Protein, Total 7.8 g/dL (6.4-8.2); Sodium Level 137 mmol/L (136-145)
[2023-04-26 22:57] LABS: White Blood Cells 25-50 SEEN /hpf (0-5)
[2023-04-26 22:58] LABS: Bacteria 1+ /hpf (None Seen); Red Blood Cells-Urine > 100 SEEN /hpf (0-5); Squamous Epithelial Cells - UA 10-25 SEEN /hpf (5-10)
[2023-04-27 00:25] VITALS: BP 129/73; PULSE 78; RESP 16; O2SAT 96
[2023-04-27] MEDS: Cephalexin 250 MG Capsule 500 MG PO (00:38)
[2023-04-27 00:44] VITALS: BP 129/73; PULSE 78; RESP 16; O2SAT 97
== END 2023-04-27 00:46 | disposition home or self-care (01) ==
PROVIDERS: Emergency Provider Emergency Medicine; PCP Physician Assistant; Visit Provider Emergency Medicine
DX: N13.2 Hydronephrosis with renal and ureteral calculous obstruction (principal); E11.9 Type 2 diabetes mellitus without complications; I10 Essential (primary) hypertension; E78.00 Pure hypercholesterolemia, unspecified
CPT/HCPCS: 74177; 80053; 81001; 84703; 85025; 96374; 96375; 99284; Q9967; A4216; J2405

== ENCOUNTER 2023-04-28 02:28 | Emergency (ER) | payer MEDICAID, SELFPAY ==
[2023-04-28 02:28] VITALS: BP 141/77; PULSE 70; RESP 20; TEMP 35.9; O2SAT 100; BMI 51.7
--- NOTE | 2023-04-28 02:37 | ED.VIS.GI ---
HPI HPI - GI History of Present Illness Chief Complaint: Flank Pain Informant: patient Abdominal Pain/Flank Pain Onset: Hours Context: Sudden Onset Timing: Continuous Quality: Aching Location: Right Flank Current Severity: Severe Maximum Severity: Severe Worsened by: Nothing Relieved by: Nothing Nausea/Vomiting/Emesis GI Symptom: Positive for Nausea and Vomiting Associated Symptoms Associated Symptoms: Negative for Dysuria, Frequency, Hematuria or Urgency Narrative Narrative: Patient seen here about 24 hours ago diagnosed with 6 mm right UVJ kidney stone, she states the pain went away for a while but now it is back, she had Vicodin at home and she took 2 of them, 1 tablet 4 hours apart, and its not helping her pain. Pain is in the same location right flank, radiates down toward the groin, also into the right low back, she is vomiting, but no fevers, hematuria, or any other new symptoms. She did get an initial dose of antibiotic yesterday in the ER but she states my forgot to pick the prescription medication up today. [facility] Medical History (Updated 04/28/23 @ 04:[address] Barry Martinez MD) Ambulates with cane Anxiety and depression ASCUS with positive high risk HPV cervical Asthma Diabetes DVT (deep venous thrombosis) Fatty liver Fibromyalgia High cholesterol History of pain when walking Hormone deficiency Hyperandrogenism Hyperlipidemia Hypertension Hypothyroidism Migraine headache Morbid obesity SARA on CPAP Osteoarthritis Osteoporosis PCOS (polycystic ovarian syndrome) Polyarthralgia Vision problems Wears glasses Home Medications fluticasone propionate 50 mcg/actuation nasal spray,suspension 1 spray intranasal PRN PRN nasal congestion 01/19/22 [History Last Taken Unknown] levothyroxine 100 mcg tablet 100 mcg PO DAILY 01/19/22 [History Last Taken Unknown] cyclobenzaprine 10 mg tablet 10 mg PO HS PRN Muscle Pain 03/22/22 [History Last Taken Unknown] cholecalciferol (vitamin D3) 1,250 mcg (50,000 unit) capsule 50,000 unit PO .2xweek supplement 05/10/22 [History Last Taken Unknown] duloxetine 30 mg capsule,delayed release (Cymbalta) 30 mg PO QAM 05/10/22 [History Last Taken Unknown] duloxetine 60 mg capsule,delayed release 60 mg PO QHS 05/10/22 [History Last Taken Unknown] pregabalin 50 mg capsule (Lyrica) 50 mg PO QHS 05/10/22 [History Last Taken Unknown] tofacitinib 11 mg tablet,extended release 24 hr (Xeljanz XR) 5 mg PO BID 08/18/22 [History Last Taken Unknown] metformin 1,000 mg tablet 1,000 mg PO BID #60 tabs 12/21/22 [Rx Last Taken Unknown] blood sugar diagnostic ([employer] Exchange[employer] Ultra Test strips) 03/29/23 [History Last Taken Unknown] atorvastatin 20 mg tablet 40 mg PO QHS 04/11/23 [History Last Taken Unknown] dulaglutide 1.5 mg/0.5 mL subcutaneous pen injector (Trulicity) 1.5 mg subcut FR 04/11/23 [History Last Taken Unknown] lisinopril 5 mg tablet 5 mg PO QHS 04/11/23 [History Last Taken Unknown] meloxicam 15 mg tablet 15 mg PO DAILY pain 04/26/23 [History Last Taken 04/25/23] warfarin 5 mg tablet 5 mg PO DAILY blood thinner 04/26/23 [History Last Taken Unknown] cephalexin 500 mg capsule 500 mg PO Q8H #15 caps 04/27/23 [Rx Last Taken Unknown] ondansetron 4 mg disintegrating tablet 8 mg (2 x 4 mg) PO Q8H PRN PRN Nausea #15 tabs 04/28/23 [Rx Last Taken Unknown] oxycodone-acetaminophen 5 mg-325 mg tablet 1 tab PO Q4H PRN PRN Pain 3 days #15 TABLETS 04/28/23 [Rx Last Taken Unknown] tamsulosin 0.4 mg capsule (Flomax) 0.4 mg PO DAILY #7 caps 04/28/23 [Rx Last Taken Unknown] Allergy/AdvReac Type Severity Reaction Status Date / Time No Known Allergies Allergy Verified 04/28/23 02:31 Family History Mother Cancer cervical, uterine Grandmother Cancer uterine Grandfather CVA (cerebral vascular accident) Other Alcohol abuse Arthritis Breast cancer Cervical cancer Depression Hormone deficiency Mental disorder Myocardial infarction Osteoporosis Psychiatric care Seizures Suicidal intent Uterine cancer Surgical History H/O colposcopy with cervical biopsy H/O endoscopy History of cholecystectomy History of elbow surgery History of elbow surgery History of left heart catheterization (05/02/22) History of tonsillectomy and adenoidectomy Hx laparoscopic cholecystectomy Social History Smoking Status: Never smoker alcohol intake: current alcohol intake frequency: holidays/special occasions only Alcohol type: wine substance use type: does not use what type of physical activity do you participate in: other ROS ROS ED Constitutional Constitutional ED: Denies chills or fever(s) Eyes Eyes: Denies change in vision or diplopia ENT ENT ED: Denies rhinorrhea or sore throat Cardiovascular Cardiovascular: Denies chest pain or palpitations Respiratory/Chest Respiratory/Chest: Denies cough or dyspnea Gastrointestinal Gastrointestinal: Reports abdominal pain, nausea and vomiting; Denies diarrhea Genitourinary Genitourinary ED: Reports flank pain; Denies dysuria or hematuria Musculoskeletal Musculoskeletal: Denies back pain or neck pain Integumentary Denies abscess or rash Neurologic Neurologic: Denies headache(s), paresthesias or weakness Psychiatric Psychiatric: Denies anxiety or suicidal thoughts Hematologic/Lymphatic Hematologic/Lymphatic: Reports easy bleeding and easy bruising EXAM Physical Exam Const Vital Signs: 04/28/23 02:28 Temperature 96.6 F L Temperature Source Temporal Pulse Rate 70 Respiratory Rate 20 H Blood Pressure 141/77 H Blood Pressure Mean 98 Pulse Ox 100 Oxygen Delivery Method Room Air Positive well nourished, well developed and obese General Appearance ED: well developed and NAD Nutritional Appearance: obese HEENT Reports moist mucous membranes normocephalic and atraumatic Eyes PERRL and EOMs intact bilaterally Neck full ROM and supple Resp normal respiratory effort and clear to auscultation bilaterally Cardio regular rate, regular rhythm and no murmurs GI non-tender and non-distended Auscultation: normoactive bowel sounds Palpation: soft Back/Spine General Back: CVA tenderness right (mild) and other FROM Extremity normal to inspection General Extremety ED: Negative for edema, pulses abnormal or tenderness General Extremity: Negative for edema or pulses abnormal Neuro oriented x3, CN's II-XII intact bilaterally and no sensory deficits noted Sensorium / Orientation: awake and alert Motor Exam: strength 5/5 throughout Skin no rashes or lesions noted and no wounds MDM MDM MDM Narrative Medical decision making narrative: Patient was given analgesics, she is doing much better on reevaluation. Her vital signs are normal, she is not having gross hematuria, she was prescribed cephalexin for an abnormal urinalysis, I checked for culture but there is not 1. I think that is okay. We discussed reasons to return, I do not think she needs any other studies repeated right now, she has a 6 mm UVJ stone, I do think it would be reasonable to try her on Flomax and have her follow-up with urology if she continues to have issues, and upgrade her analgesic to Percocet. She is comfortable with that plan and has a ride home. Discharge Plan Triage Chief Complaint: Flank Pain ED Provider: Barry Martinez Dx/Rx/DC Orders Clinical Impression: Ureteral colic, Kidney stone on right side Instructions: ED Kidney Stone w/ Colic Prescriptions: New oxycodone-acetaminophen [oxycodone-acetaminophen] 5-325 mg tablet 1 tab PO Q4H PRN PRN (Reason: Pain) 3 Days Qty: 15 0RF tamsulosin [Flomax] 0.4 mg capsule 0.4 mg PO DAILY Qty: 7 0RF ondansetron [ondansetron] 4 mg tablet,disintegrating 8 mg PO Q8H PRN PRN (Reason: Nausea) Qty: 15 0RF No Action levothyroxine 100 mcg tablet 100 mcg PO DAILY fluticasone propionate 50 mcg/actuation spray,suspension 1 spray intranasal PRN PRN (Reason: nasal congestion) duloxetine 60 mg capsule,delayed release(DR/EC) 60 mg PO QHS Xeljanz XR 11 mg tablet extended release 24 hr 5 mg PO BID cyclobenzaprine 10 mg tablet 10 mg PO HS PRN (Reason: Muscle Pain) duloxetine [Cymbalta] 30 mg capsule,delayed release(DR/EC) 30 mg PO QAM cholecalciferol (vitamin D3) 1,250 mcg (50,000 unit) capsule 50,000 unit PO .2xweek pregabalin [Lyrica] 50 mg capsule 50 mg PO QHS atorvastatin 20 mg tablet 40 mg PO QHS lisinopril 5 mg tablet 5 mg PO QHS Trulicity 1.5 mg/0.5 mL pen injector 1.5 mg subcut FR meloxicam 15 mg tablet 15 mg PO DAILY Patient Comments: TAKE 1 TABLET BY MOUTH ONCE DAILY warfarin 5 mg tablet 5 mg PO DAILY cephalexin 500 mg capsule 500 mg PO Q8H Qty: 15 0RF metformin 1,000 mg tablet 1,000 mg PO BID Qty: 60 6RF (DME) OneTouch Ultra Test Strip See Rx Instructions .Route Rx Instructions: test blood sugar twice daily quantity 200 days supply 50 Primary Care Provider: Robyn Kate Referrals: Vianca Capellan MD [Med Staff - Active Staff] - 1 Week if not improving Robyn Kate PA [Primary Care Provider] - Disposition Disposition: Home, Self Care
[2023-04-28] MEDS: Morphine 4 MG/ML Syringe IV (02:42)
[2023-04-28] MEDS: Ondansetron 4 MG/2 ML Vial IV (02:42)
[2023-04-28] MEDS: HYDROmorphone 1 MG/ML Syringe IV (03:11)
[2023-04-28] MEDS: Ketorolac 15 MG/ML Vial IV (03:11)
== END 2023-04-28 04:47 | disposition home or self-care (01) ==
PROVIDERS: Emergency Provider Emergency Medicine; PCP Physician Assistant; Visit Provider Emergency Medicine
DX: N20.0 Calculus of kidney (principal); E11.9 Type 2 diabetes mellitus without complications; E78.00 Pure hypercholesterolemia, unspecified; I10 Essential (primary) hypertension; E66.9 Obesity, unspecified; Z79.899 Other long term (current) drug therapy
CPT/HCPCS: 96374; 96375; 99283; A4216; J2405

== ENCOUNTER → 2023-05-03 | Outpatient (CLI) | payer MEDICAID, SELFPAY ==
[2023-05-03 15:57] LABS: Estradiol 44.2 pg/mL; Follicle Stimulating Hormone 9.7 mIU/mL; Luteinizing Hormone 7.6 mIU/mL
== END | disposition home or self-care (01) ==
LOC: PAVLAB 15:22
PROVIDERS: PCP Physician Assistant; Referring Provider Obstetrics & Gynecology; Visit Provider Obstetrics & Gynecology
DX: N91.2 Amenorrhea, unspecified (principal)
CPT/HCPCS: 36415; 82627; 82670; 83001; 83002; 82626

== ENCOUNTER → 2023-05-05 | Outpatient (CLI) | payer MEDICAID, SELFPAY ==
--- NOTE | 2023-05-05 11:19 | MRI_ITS ---
STUDY: MRI BRAIN WITH AND WITHOUT CONTRAST REASON FOR EXAM: Female, 53 years old. HEADACHES, NEUROPATHY, UNSTEADY GAIT TECHNIQUE: Standardized multiplanar fat and water weighted pulse sequences were obtained. IV 30 ml CLARISCAN was administered for the contrast portion of the examination. COMPARISON: None. FINDINGS: Normal size of the ventricles and extra-axial spaces for the patient''s age. Normal white matter tracts of the supratentorial brain. Normal bilateral basal ganglia. Normal thalami. There is no extra-axial fluid accumulation. Normal flow voids within the major intracranial circulation suggesting patency by spin echo criteria. Normal venous enhancement. There are tiny enhancing vessels in the right temporal lobe has appearance of small venous angioma . Normal sella turcica, pituitary gland, infundibular stalk, optic chiasm and hypothalamus. Normal tectal plate and pineal gland. Normal midbrain, [place] and medulla. Normal cerebellum. Normal basal cisterns. Normal bilateral temporal bones. Normal bilateral internal auditory canals. No demonstrated orbital abnormality, within the constraints of a routine brain study. Normal visualized paranasal sinuses. Normal calvarium and skull base. Normal visualized soft tissue structures. Normal visualized upper cervical spine. MRI/Brain W/WO Contrast IMPRESSION: Findings consistent with venous angioma in the right temporal lobe likely of no significance Otherwise normal enhanced and unenhanced MRI of the brain Electronically Signed: Roberto Bird MD at 22:54 EDT ,
== END | disposition home or self-care (01) ==
LOC: MRI 10:56
PROVIDERS: PCP Physician Assistant
DX: D73.5 Infarction of spleen (principal); R51.9 Headache, unspecified
CPT/HCPCS: 70553; A9575

== ENCOUNTER → 2023-05-17 | Outpatient (CLI) | payer MEDICAID, SELFPAY ==
[2023-05-17 17:52] LABS: International Normalized Ratio 2.7; Prothrombin Time (Protime)PT. 29.2 SECONDS (11.7-14.9)
== END | disposition home or self-care (01) ==
PROVIDERS: PCP Physician Assistant; Referring Provider Physician Assistant; Visit Provider Physician Assistant
DX: Z79.01 Long term (current) use of anticoagulants (principal)
CPT/HCPCS: 36415; 85610

== ENCOUNTER 2023-05-18 12:50 | Outpatient (RCR) | payer MEDICAID, SELFPAY ==
--- NOTE | 2023-05-18 13:46 | HP.PTEVAL ---
Patient's Visit Information Visit Information Visit Information: REHANA BROWNE is a 53 year old F referred to Physical Therapy by DAVIN Lee with a diagnosis of Generalized muscle weakness, M62.81. Date of Evaluation: 05/18/23 Physical Therapist: Pablo Akins Visit Plan Frequency: 2x /Week Duration: 6 Weeks Plan: Continue with improving LE strength and balance. Subjective Subjective: Pt. is a 53 y.o. female who has been noticing for the last month and a half that her balance has been off and her right foot will catch the back of her left foot. Pt. is currently ambulating with a SPC which she has for about a year. She had recent MRI of her brain but is unclear of any results. Pt. has not had any actual falls but has had some near falls where she caught herself. She denies any dizziness. She has difficulty with walking, standing longer than 5 minutes, ascending/descending stairs, walking on uneven ground, dressing/bathing, housework, and yard work. Pt. is unemployed. Her goal with physical therapy is to improve her balance. She denies any pain currently. Her PMH includes fibromyalgia, sleep apnea, hypothyroidism, HBP controlled with medication, type II diabetes, orthostatic intolerance, chronic fatigue syndrome, HTN, PCOS, gall bladder removed, bilateral DeQuervein's surgery, and gout. Her hobbies include reading. Objective Objective: Posture- Good posture in standing Palpation- No tenderness to palpation Hip PROM- WNL bilaterally Left hip strength flexion 4-/5, abduction 4-/5, adduction 4/5, extension 4-/5, knee flexion 4+/5, knee extension 4/5, ankle DF 5/5, ankle PF 5/5 Right hip strength flexion 4-/5, abduction 4-/5, adduction 4/5, extension 4-/5, knee flexion 4+/5, knee extension 4/5, ankle DF 5/5, ankle PF 5/5 Sensation- WNL bilateral lower extremities Oculomotor exam- Spontaneous nystagmus [-], Smooth pursuit [-], Saccades [-], VOR [-] Tandem stance right 6 secs, left 14 secs SLS right 5 secs, left 2 secs Gait- Pt. ambulates with SPC. Balance/Special Test Scores Lower Extremity Functional Score: 21 Goals Goal 1:: Pt. will be able to stand/walk for at least 15 minutes with no rest break in order to improve endurance. Goal Time Frame: 4-6 Weeks Goal 2:: Pt. will report no falls. Goal Time Frame: 4-6 Weeks Goal 3:: Pt. will improve tandem stance > 20 secs in order to improve stability and balance. Goal Time Frame: 4-6 Weeks Goal 4:: Pt. will be able to ascend/descend a flight of stairs with alternating step pattern and unilateral handrail. Goal Time Frame: 4-6 Weeks Goal 5:: Pt. will improve bilateral LE strength to 4/5 for all motions in order to improve stability and balance. Goal Time Frame: 4-6 Weeks Goal 6:: Pt. will improve Lower Extremity Functional Scale < 60% disability in order to improve mobility. Goal Time Frame: 4-6 Weeks Rehabilitation Potential Physical Therapy Diagnosis: Decreased LE strength and balance Rehabilitation Potential: Good Anticipated Interventions Patient/Client Instruction: Educate patient on: Condition, Plan of Care and Benefits of Fitness Program For the Purpose of:: To decrease pain, To improve ability to perform ADL's, To improve performance and independence with ADL's, To improve balance, To assume or resume ADL's and To improve tolerance to ADL's Therapeutic Exercise to Include: Strength training, Endurance training, Balance training and Gait and locomotor training Comment: Continue with improving LE strength and balance. For the Purpose of:: To improve ability to perform ADL's, To improve performance and independence with ADL's, To improve balance, To improve safety with gait, To assume or resume ADL's, To improve safety and To improve tolerance to ADL's Functional Training to Include: ADL Training and Gait training For the Purpose of:: To improve ability to perform ADL's, To improve performance and independence with ADL's, To improve balance, To improve safety with gait, To assume or resume ADL's and To improve tolerance to ADL's Assistive Devices: Cane For the Purpose of:: To improve ability to perform ADL's, To improve performance and independence with ADL's, To improve gait and locomotor functions, To improve balance, To improve safety with gait, To assume or resume ADL's and To improve tolerance to ADL's Text: Thank you for the opportunity to evaluate your patient. For Medicare and Medicare HMO plans, please review the plan of care and approve it. It will need to be FAXED BACK to us at [phone] for Medicare purposes. For Medicare only, by signing this I certify the plan of care. Please let me know if there are questions or concerns regarding this plan of care. Physician Signature: Date:
--- NOTE | 2023-07-05 08:10 | HP.PT.NRP ---
Patient Information Patient Information: REHANA BROWNE was seen in my office for initial evaluation on 05/18/23. The following Plan of Care was established for this patient: POC Established Initial Frequency: 2x /Week Initial Duration: 6 Weeks Anticipated Interventions Patient/Client Instruction: Educate patient on: Condition, Plan of Care and Benefits of Fitness Program For the Purpose of:: To decrease pain, To improve ability to perform ADL's, To improve performance and independence with ADL's, To improve balance, To assume or resume ADL's and To improve tolerance to ADL's Therapeutic Exercise to Include: Strength training, Endurance training, Balance training and Gait and locomotor training For the Purpose of:: To improve ability to perform ADL's, To improve performance and independence with ADL's, To improve balance, To improve safety with gait, To assume or resume ADL's, To improve safety and To improve tolerance to ADL's Functional Training to Include: ADL Training and Gait training For the Purpose of:: To improve ability to perform ADL's, To improve performance and independence with ADL's, To improve balance, To improve safety with gait, To assume or resume ADL's and To improve tolerance to ADL's Assistive Devices: Cane For the Purpose of:: To improve ability to perform ADL's, To improve performance and independence with ADL's, To improve gait and locomotor functions, To improve balance, To improve safety with gait, To assume or resume ADL's and To improve tolerance to ADL's Last Seen Last Seen: This patient was last seen in our office 05/18/23. Pertinent comments regarding their Physical therapy will appear below: Pt seen for IE and then cancelled all remaining visits. At this point, it has been over 6 weeks and I will discontinue due to nonattendance. At this point I will be discontinuing this patient from physical therapy. I would be happy to see this patient again in the future if found appropriate by the physician. Thank you! Allan Wells, DPT, OCS, CSCS Balance/Gait/Functional tests Balance/Special Test Scores Lower Extremity Functional Score: 21
== END 2023-05-18 19:00 | disposition home or self-care (01) ==
LOC: PT 12:50
PROVIDERS: PCP Physician Assistant; Referring Provider Physician Assistant; Visit Provider Physician Assistant
DX: M62.81 Muscle weakness (generalized) (principal)
CPT/HCPCS: 97162

== ENCOUNTER 2023-05-30 16:31 | Outpatient (RCR) | payer MEDICAID, SELFPAY ==
[2023-05-30 16:39] LABS: INR Fingerstick 2.8; Prothrombin Time Fingerstick 30.5 SEC (11.7-14.9)
== END 2023-05-30 18:00 | disposition home or self-care (01) ==
LOC: MTLAB 16:31
PROVIDERS: PCP Physician Assistant; Referring Provider Physician Assistant; Visit Provider Physician Assistant
DX: Z79.01 Long term (current) use of anticoagulants (principal)
CPT/HCPCS: 36416; 85610

== ENCOUNTER 2023-06-28 11:06 | Outpatient (RCR) | payer MEDICAID, SELFPAY ==
[2023-06-28 12:18] LABS: International Normalized Ratio 2.1; Prothrombin Time (Protime)PT. 23.6 SECONDS (11.7-14.9)
[2023-06-28 13:12] LABS: Vitamin D,25 Hydroxy 46.8 ng/mL
[2023-06-28 13:19] LABS: Cholesterol 245 mg/dL (200); High Density Lipoprotein 69 mg/dL; Thyroid Stim Hormone (TSH) 7.08 uIU/mL (0.358-3.74); Triglycerides 162 mg/dL; Very Low Density Lipoprotein 32 mg/dL (5-40)
== END 2023-06-28 18:00 | disposition home or self-care (01) ==
LOC: MTLAB 11:06
PROVIDERS: Nurse Practitioner Family; PCP Physician Assistant; Referring Provider Physician Assistant; Visit Provider Physician Assistant
DX: E11.9 Type 2 diabetes mellitus without complications (principal); Z79.01 Long term (current) use of anticoagulants
CPT/HCPCS: 36415; 80061; 82306; 84443; 85610

== ENCOUNTER → 2023-07-10 | Outpatient (CLI) | payer MEDICAID, SELFPAY ==
--- NOTE | 2023-07-10 13:49 | CT_ITS ---
STUDY: CT ABDOMEN AND PELVIS WITH CONTRAST REASON FOR EXAM: Female, 53 years old. SPLENIC INFARCT RADIATION DOSAGE (If Supplied By Facility): CTDIvol = ( 15.91 ) mGy, DLP = ( 1232.91 ) mGycm TECHNIQUE: IV 100mL Isovue-300 was administered. Transaxial images were obtained from the dome of the diaphragm to the symphysis pubis in the portal venous phase. Multiplanar coronal and sagittal images were reformatted. Individualized Dose Optimization Techniques Were Used For This CT. COMPARISON: 04/26/2023 FINDINGS: LOWER CHEST: Lung bases are clear. No cardiomegaly or pericardial effusion. LIVER: The liver is normal in size, shape, and attenuation. No focal mass. GALLBLADDER AND BILIARY TREE: Cholecystectomy. No intra- or extrahepatic biliary ductal dilation. PANCREAS: No focal cystic or solid mass. SPLEEN: Remains mildly enlarged. Evolving splenic infarcts redemonstrated. No new splenic infarcts. ADRENAL GLANDS: No nodules. KIDNEYS AND URETERS: Normal renal size and position. No hydronephrosis or nephrolithiasis. PERITONEUM: No ascites or free air. No other fluid collection. BOWEL: The stomach is unremarkable. Normal caliber small bowel. There is no obstruction. No colonic wall thickening or inflammation. No free air or free fluid. No evidence of acute appendicitis. LYMPH NODES: No enlarged mesenteric or retroperitoneal lymph nodes. VESSELS: Aorta is non-dilated. 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 The superior mesenteric vein remains patent below the pancreas with collateral flow through the pancreaticoduodenal arcade. URINARY BLADDER: Unremarkable. REPRODUCTIVE ORGANS: Uterus and adnexa unremarkable. ABDOMINAL WALL: No discrete abdominal or pelvic wall hernia. BONES: No acute or suspicious osseous abnormalities. CT/Abdomen/Pelvis WITH Contrast IMPRESSION: * Stable splenomegaly with evolving splenic infarcts. No new splenic infarcts. 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 The superior mesenteric vein remains patent with collateral drainage through the pancreaticoduodenal arcade Electronically Signed: Herbie Esteban MD at 19:26 EDT ,
[2023-07-10 14:25] LABS: CREATININE FINGERSTICK < 0.9 mg/dL (0.55-1.02); EGFR FINGERSTICK > 60.0000 mL/min (>60)
== END | disposition home or self-care (01) ==
LOC: CT 13:45
PROVIDERS: PCP Physician Assistant
DX: D73.5 Infarction of spleen (principal)
CPT/HCPCS: 74177; Q9967

== ENCOUNTER 2024-03-31 03:16 | Emergency (ER) | payer MEDICAID, SELFPAY ==
[2024-03-31 03:17] VITALS: BP 145/85; PULSE 91; RESP 22; TEMP 37.1; O2SAT 91; BMI 54.5
--- NOTE | 2024-03-31 03:27 | EDS_ITS ---
HPI History of Present Illness Chief Complaint: Other, Pain/Inj Detail of Chief Complaint: Left breast pain Informant: patient Narrative Narrative: 54-year-old female presenting 3:30 AM for pain in her left breast that has been present for several weeks but getting worse. She states this started with a lump that developed into a bigger mass, this was within the past month. She had a mammogram that was abnormal and she was referred for an ultrasound which she had less than 1 week ago somewhere other than this hospital. She states she was referred to [facility] for consultation to be seen after the ultrasound resulted, she does not have the results of the ultrasound yet and she has not heard from anyone about an appointment, but states if the pain became worse to go to the ER. When asked why she was referred to the ER she states she does not know. She states the pain is really getting severe. She felt really hot tonight but did not have a thermometer to check her temperature. She is afebrile here. There is redness on her left breast and she states that has been there for maybe a week or less. She denies any nipple discharge at all. No other symptoms. [facility] Medical History SARA on CPAP Anxiety and depression Fibromyalgia Osteoporosis Hypertension DVT (deep venous thrombosis) Wears glasses Ambulates with cane Diabetes High cholesterol Fatty liver Migraine headache History of pain when walking ASCUS with positive high risk HPV cervical Vision problems Hormone deficiency Asthma Hypothyroidism Polyarthralgia Osteoarthritis Hyperlipidemia Hyperandrogenism PCOS (polycystic ovarian syndrome) Morbid obesity Home Medications ?Medication ?Instructions ?Recorded ?Last Taken ?Type fluticasone propionate 50 1 spray intranasal PRN PRN nasal 01/19/22 Unknown History mcg/actuation nasal congestion spray,suspension levothyroxine 100 mcg tablet 100 mcg PO DAILY 01/19/22 Unknown History cyclobenzaprine 10 mg tablet 10 mg PO HS PRN Muscle Pain 03/22/22 Unknown History duloxetine 30 mg capsule,delayed 30 mg PO QAM 05/10/22 Unknown History release (Cymbalta) duloxetine 60 mg capsule,delayed 60 mg PO QHS 05/10/22 Unknown History release blood sugar diagnostic (OneTouch 03/29/23 Unknown History Ultra Test strips) oxycodone-acetaminophen 5 mg-325 1 tab PO Q4H PRN PRN Pain 3 days 04/28/23 Unknown Rx mg tablet #15 TABLETS metformin 1,000 mg tablet 1,000 mg PO BID #60 tabs 07/19/23 Unknown Rx aspirin 81 mg tablet,delayed 81 mg PO DAILY 07/26/23 Unknown History release (Adult Low Dose Aspirin) pregabalin 50 mg capsule (Lyrica) 50 mg PO TID 07/26/23 Unknown History lisinopril 5 mg tablet 5 mg PO QHS #90 tabs 12/25/23 Unknown Rx dulaglutide 1.5 mg/0.5 mL 1.5 mg (0.5 mL) subcut FR #2 mL 01/23/24 Unknown Rx subcutaneous pen injector (Trulicity) cephalexin 500 mg capsule 500 mg PO Q6 #40 CAPSULES 03/31/24 Unknown Rx hydrocodone-acetaminophen 5-325mg 1 tab PO Q6H PRN PRN Pain 5 days 03/31/24 Unknown Rx 5mg-325mg #20 TABLETS Allergy/AdvReac Type Severity Reaction Status Date / Time No Known Allergies Allergy Verified 03/31/24 03:20 Family History Mother Cancer cervical, uterine Grandmother Cancer uterine Grandfather CVA (cerebral vascular accident) Other Alcohol abuse Arthritis Breast cancer Cervical cancer Depression Hormone deficiency Mental disorder Myocardial infarction Osteoporosis Psychiatric care Seizures Suicidal intent Uterine cancer Surgical History H/O colposcopy with cervical biopsy H/O endoscopy History of cholecystectomy History of elbow surgery History of elbow surgery History of left heart catheterization (05/02/22) History of tonsillectomy and adenoidectomy Hx laparoscopic cholecystectomy Social History Smoking Status: Never smoker alcohol intake: current alcohol intake frequency: holidays/special occasions only Alcohol type: wine substance use type: does not use what type of physical activity do you participate in: other ROS ROS ED Constitutional Constitutional ED: Reports fever(s) and subjective Cardiovascular Cardiovascular: Reports other Details: Left breast pain. No discharge. Integumentary Reports rash Neurologic Neurologic: Denies headache(s), paresthesias or weakness EXAM Physical Exam Const Vital Signs: 03/31/24 03:17 03/31/24 03:21 Temperature 98.7 F Temperature Source Temporal Pulse Rate 91 Respiratory Rate 22 H Respiratory Effort Normal Non-Labored Respiratory Pattern Normal Blood Pressure 145/85 H Blood Pressure Mean 105 Pulse Ox 91 Oxygen Delivery Method Room Air Positive well nourished, well developed and obese General Appearance ED: well developed and NAD Nutritional Appearance: obese HEENT Reports moist mucous membranes Eyes PERRL and EOMs intact bilaterally Neck supple Chest Wall Chest Narrative: Left breast: Surrounding the areola, there is erythema without induration or peau d'orange appearance. The nipple shows no signs of discharge even when attempting to express. The entire front of the breast is firm and feels like there is a mass basically behind the areola, nothing fluctuant. Resp normal respiratory effort Extremity normal to inspection Neuro oriented x3, CN's II-XII intact bilaterally, no sensory deficits noted and gait normal Motor Exam: strength 5/5 throughout Psych mental status grossly normal Skin no wounds Skin Narrative: Erythema part of the left breast see above MDM MDM MDM Narrative Medical decision making narrative: Differential here includes inflammatory breast cancer which I discussed with the patient, or this may be erythema related to what ever is causing the mass, is less likely to be an abscess or she would probably have been notified about the ultrasound results by now, were advised to go to the ER but I do not have access to her results. Mastitis on top of the masses not ruled out so I am covering her for that with cephalexin and prescribing her something for pain. She understands the relative limitations of diagnosing this since I do not have the ability to perform an emergent ultrasound at 0330 on Monday morning, but I am happy to cover her for infection and give her something for pain which is why she came. She is comfortable with that plan as well as calling surgery to confirm a consultation appointment tomorrow. Discharge Plan Triage Chief Complaint: Other, Pain/Inj ED Provider: Barry Martinez Dx/Rx/DC Orders Clinical Impression: Subareolar mass of left breast Instructions: ED Breast Lump, Uncertain Cause, ED Mastitis Prescriptions: New hydrocodone-acetaminophen 5-325 mg tablet 1 tab PO Q6H PRN PRN (Reason: Pain) 5 Days Qty: 20 0RF cephalexin 500 mg capsule 500 mg PO Q6 Qty: 40 0RF No Action levothyroxine 100 mcg tablet 100 mcg PO DAILY fluticasone propionate 50 mcg/actuation spray,suspension 1 spray intranasal PRN PRN (Reason: nasal congestion) duloxetine 60 mg capsule,delayed release(DR/EC) 60 mg PO QHS cyclobenzaprine 10 mg tablet 10 mg PO HS PRN (Reason: Muscle Pain) duloxetine [Cymbalta] 30 mg capsule,delayed release(DR/EC) 30 mg PO QAM pregabalin [Lyrica] 50 mg capsule 50 mg PO TID aspirin [Adult Low Dose Aspirin] 81 mg tablet,delayed release (DR/EC) 81 mg PO DAILY oxycodone-acetaminophen [oxycodone-acetaminophen] 5-325 mg tablet 1 tab PO Q4H PRN PRN (Reason: Pain) 3 Days Qty: 15 0RF (DME) OneTouch Ultra Test Strip See Rx Instructions .Route Rx Instructions: test blood sugar twice daily quantity 200 days supply 50 metformin 1,000 mg tablet 1,000 mg PO BID Qty: 60 11RF lisinopril 5 mg tablet 5 mg PO QHS Qty: 90 3RF Trulicity 1.5 mg/0.5 mL pen injector 1.5 mg subcut FR Qty: 2 1RF Primary Care Provider: Robyn Kate Referrals: Marshall Duncan MD [Med Staff - Active Staff] - (call office on Monday for appt info) Robyn Kate PA [Primary Care Provider] - Print Language: Kiswahili Disposition Disposition: Home, Self Care
[2024-03-31] MEDS: HYDROcodone Bitartrate/Apap 5/325 Tablet PO (03:35)
[2024-03-31] MEDS: Cephalexin 250 MG Capsule 500 MG PO (03:35)
[2024-03-31 03:42] VITALS: BP 126/82; PULSE 85; RESP 20; TEMP 36.4; O2SAT 92
== END 2024-03-31 03:51 | disposition home or self-care (01) ==
LOC: ED 03:40
PROVIDERS: Emergency Provider Emergency Medicine; PCP Physician Assistant; Visit Provider Emergency Medicine
DX: N63.42 Unspecified lump in left breast, subareolar (principal); E66.01 Morbid (severe) obesity due to excess calories; E11.9 Type 2 diabetes mellitus without complications; N64.4 Mastodynia; N61.0 Mastitis without abscess; I10 Essential (primary) hypertension; E78.00 Pure hypercholesterolemia, unspecified; J45.909 Unspecified asthma, uncomplicated
CPT/HCPCS: 99283

== ENCOUNTER → 2024-04-01 | Outpatient (CLI) | payer MEDICAID, SELFPAY | END | disposition home or self-care (01) | PROVIDERS: PCP Physician Assistant; Visit Provider Physician Assistant | DX: N64.4 Mastodynia (principal); N61.1 Abscess of the breast and nipple | CPT/HCPCS: 87070; 87075; 87077; 87205 ==